=== PATIENT | male | born 1945 | race Caucasian/White ===

== ENCOUNTER 2018-01-16 10:55 | Observation (INO) ==
--- NOTE | 2018-01-16 11:18 | ED ---
HPI General Chief Complaint: Chest Pain Stated Complaint: Chest Pain Time Seen by Provider: 01/16/18 10:57 Source: patient Mode of arrival: EMS Limitations: no limitations History of Present Illness HPI narrative: The patient is a 72-year-old male who presents to the emergency department via EMS for chest pain. The patient states he developed chest pain at 9:30 AM while he was sitting in his recliner, drinking coffee, and watching a game show. The chest pain was left-sided, described as heaviness , radiates to left upper extremity and left jaw and neck. The pain is constant , described as a heaviness. The patient's pain initially was 9.5, he took 2 sublingual nitroglycerin at home which brought his pain down to 9.0. The patient's pain continued, therefore, he called EMS who provided the patient with aspirin and nitroglycerin sublingual. The patient does complain of mild shortness of breath, nausea, and diaphoresis. The patient has a history of hypertension, hyperlipidemia, but quit smoking 9 years ago. He denies any history of diabetes. The patient states he had a stress test several years ago for hospital which was unremarkable, however, had a CAT scan of his chest which was positive for an 80% blockage per his report. The patient states he underwent cardiac catheterization at that time via the right wrist and was noted to not have any blockages per his report. However, the patient had chest pain last week and went to [facility], requested a stress test, but was discharged home. The patient did have [employer] and was followed by Dr. Zendejas, however, he now has [facility] and does not have a coordinator cardiopulmonary services. Symptoms are moderate and progressive. The patient denies any history of pulmonary embolism or DVT. MD complaint: Reports chest pain STEMI Alert: No Onset (ago): hour(s) Time: 09:30 Duration: constant Onset: during rest Pain location: Reports left chest Severity: severe Severity scale (1-10): 9 Quality: Reports heaviness Pain radiation: Reports LUE and neck Relieving factors: nitroglycerin Exacerbating factors: nothing Associated symptoms: Reports nausea, diaphoresis and dyspnea Treatments prior to arrival chest pain: Reports aspirin and nitroglycerin Related Data Home Medications Medication Instructions Recorded Confirmed albuterol sulfate [Ventolin HFA] 1 - 2 puff INHALATION Q6H PRN 01/16/18 01/16/18 aspirin 81 mg PO DAILY 01/16/18 01/16/18 atorvastatin 40 mg PO HS 01/16/18 01/16/18 levocetirizine [Xyzal] 5 mg PO DAILY 01/16/18 01/16/18 levothyroxine 137 mcg PO DAILY 01/16/18 01/16/18 lisinopril 5 mg PO DAILY 01/16/18 01/16/18 mv,Ca,eyg-avpl-JN-lycopene 1 tab PO DAILY 01/16/18 01/16/18 [Centrum Men] nitroglycerin [Nitrostat] 0.4 mg SUBLINGUAL Q5-15M PRN 01/16/18 01/16/18 zolpidem [Ambien] 10 mg PO HS 01/16/18 01/16/18 Allergies Allergy/AdvReac Type Severity Reaction Status Date / Time cyclobenzaprine Allergy Severe Hives Verified 01/16/18 11:24 ketorolac Allergy Severe EDEMA, Verified 01/16/18 11:24 HIVES morphine Allergy Severe ITCHING Verified 01/16/18 11:24 naproxen Allergy Severe EDEMA, Verified 01/16/18 11:24 HIVES Review of Systems ROS: all other systems reviewed are negative [facility] Social History Social History Substance History: No History of Abuse and Past History Second Hand Smoke Exposure: No Smoking Status: Former smoker (quit 2008) Packs Per Day: 1.5 (1.5-2 packs/daily) Cigarettes Per Day: 30.0 Years Smoked: 44 Pack-Years: 66.00 years: 66 (66-88 pack year history ) How Often Do You Have a Drink Containing Alcohol: Never [facility] within the Last 8 Weeks: No Recent Out of Country Travel within the Last 8 Weeks: No Exam Narrative Exam Narrative: GENERAL: Awake, alert, nontoxic-appearing 72-year-old male who appears his stated age and is in no acute respiratory distress. SKIN: Focused skin assessment warm/dry. HEAD: Atraumatic. Normocephalic. EYES: Pupils equal and round. No scleral icterus. No injection or drainage. ENT: No nasal bleeding or discharge. Mucous membranes pink and moist. NECK: Trachea midline. No JVD. CARDIOVASCULAR: Regular rate and rhythm. No murmur appreciated. Heart rate in the 90s. RESPIRATORY: No accessory muscle use. Clear to auscultation. Breath sounds equal bilaterally. GASTROINTESTINAL: Abdomen soft, non-tender, nondistended. MUSCULOSKELETAL: No obvious deformities. No clubbing. No cyanosis. Trace edema bilateral lower extremities. NEUROLOGICAL: Awake and alert. No obvious cranial nerve deficits. Motor grossly within normal limits. Normal speech. PSYCHIATRIC: Appropriate mood and affect; insight and judgment normal. Course Initial Documented Vital Signs Temperature 98 F 01/16/18 11:00 Pulse Rate 93 H 01/16/18 11:00 Respiratory Rate 25 H 01/16/18 11:00 Blood Pressure 146/90 H 01/16/18 11:00 Pulse Oximetry 95 01/16/18 11:00 Last Documented Vital Signs Temperature 98.4 F 01/17/18 11:32 Pulse Rate 79 01/17/18 11:32 Respiratory Rate 18 01/17/18 11:32 Blood Pressure 156/84 H 01/17/18 11:32 Pulse Oximetry 94 L 01/17/18 11:32 Clinical Decision Support PERC Rule Age greater than or equal to 50: Yes HR greather than or equal to 100: No Sa02 on room air is less than 95%: No Unilateral Leg Swelling: No Hemoptysis: No Recent Surgery or Trauma: No Prior PE or DVT: No Hormone Use: No Medical Decision Making MDM Narrative Medical decision making narrative: IV was established, labs are drawn and sent, and the patient was placed on cardiac telemetry monitoring and continuous pulse oximetry monitoring. EKG was ordered and interpreted. Chest x-ray was obtained. The patient received aspirin and nitroglycerin sublingual prior to arrival with minimal improvement of his pain from 9.5-9.0. Therefore, the patient was placed on Nitropaste. I did review the EMR, and it appears the patient had a Lexiscan performed in 2016 which was unremarkable. Patient does have risk factors and a typical story minus exertional factors for possible ACS. Patient's heart rate was in the 90s, therefore, d-dimer was sent to lab as he could not be ruled out with PERC criteria secondary to age. CTA pulmonary angiogram was negative, patient will be placed in the chest pain center. Medical Screen Exam Complete: No Emergency Medical Condition: No Differential Diagnosis Differential Diagnosis: Differential diagnosis includes ACS, STEMI, pulmonary embolism, dissection, GERD, esophageal spasm, anxiety, cardio myopathy, deconditioning. Lab Data Result diagrams: 01/16/18 11:10 01/16/18 11:10 Lab Results 01/16/18 01/16/18 01/16/18 Range/Units 11:10 11:10 11:10 WBC 10.3 (4.0-11.0) th/mm3 RBC 4.34 L (4.50-5.90) mil/mm3 Hgb 13.8 (13.0-17.0) gm/dL Hct 40.7 (39.0-51.0) % MCV 93.9 (80.0-100.0) fL MCH 31.8 (27.0-34.0) pg MCHC 33.9 (32.0-36.0) % RDW 13.6 (11.6-17.2) % Plt Count 238 (150-450) th/mm3 MPV 7.8 (7.0-11.0) fL Neut % (Auto) 83.3 H (16.0-70.0) % Lymph % (Auto) 9.8 (9.0-44.0) % [place] % (Auto) 5.3 (0.0-8.0) % Eos % (Auto) 1.2 (0.0-4.0) % Baso % (Auto) 0.4 (0.0-2.0) % Neut # (Auto) 8.6 H (1.8-7.7) th/mm3 Lymph # (Auto) 1.0 (1.0-4.8) th/mm3 [place] # (Auto) 0.6 (0.0-0.9) th/mm3 Eos # (Auto) 0.1 (0.0-0.4) th/mm3 Baso # (Auto) 0.0 (0.0-0.2) th/mm3 WBC Differential . Differential Comment Auto diff final PT 10.9 (9.8-11.6) sec INR 1.1 Ratio APTT 25.3 (23.4-31.7) sec D-Dimer Quant (PE/DVT) 0.53 H (0.00-0.50) mg/L FEU Sodium 141 (136-145) meq/L Potassium 4.0 (3.5-5.1) meq/L Chloride 107 (98-107) meq/L Carbon Dioxide 26.1 (21.0-32.0) meq/L Anion Gap 8 (5-15) meq/L BUN 13 (7-18) mg/dL Creatinine 1.06 (0.60-1.30) mg/dL Estimated GFR 69 L (>89) mL/min Random Glucose 119 H (74-106) mg/dL Calcium 8.5 (8.5-10.1) mg/dL Magnesium 2.0 (1.5-2.5) mg/dL Total Bilirubin 0.5 (0.2-1.0) mg/dL AST 21 (15-37) U/L ALT 35 (12-78) U/L Alkaline Phosphatase 69 (45-117) U/L Total Creatine Kinase 105 (39-308) U/L CK-MB (CK-2) 1.2 (0.5-3.6) ng/mL Troponin I Less than 0.02 L (0.02-0.05) ng/mL B-Natriuretic Peptide (0-100) pg/mL Total Protein 7.1 (6.4-8.2) g/dL Albumin 3.7 (3.4-5.0) g/dL Lipase 424 H (73-393) U/L Urine Color (Yellw/Straw) Urine Clarity (Clear) Urine pH (5.0-8.5) Ur Specific [place] (1.002-1.035) Urine Protein (Neg-Trace) mg/dL Urine Glucose (UA) (Negative) mg/dL Urine Ketones (Negative) mg/dL Urine Occult Blood (Negative) Urine Nitrate (Negative) Urine Bilirubin (Negative) Urine Urobilinogen (Less than 2) mg/dL Ur Leukocyte Esterase (Negative) Urine RBC (0-3) /hpf Urine WBC (0-5) /hpf Ur Squamous Epith Cells (0-5) /hpf Hyaline Casts (0-3) /lpf Micro UA Comment Ur Microscopic Review Urine Culture Comments 01/16/18 01/16/18 01/17/18 Range/Units 11:10 17:25 05:51 WBC (4.0-11.0) th/mm3 RBC (4.50-5.90) mil/mm3 Hgb (13.0-17.0) gm/dL Hct (39.0-51.0) % MCV (80.0-100.0) fL MCH (27.0-34.0) pg MCHC (32.0-36.0) % RDW (11.6-17.2) % Plt Count (150-450) th/mm3 MPV (7.0-11.0) fL Neut % (Auto) (16.0-70.0) % Lymph % (Auto) (9.0-44.0) % [place]land % (Auto) (0.0-8.0) % Eos % (Auto) (0.0-4.0) % Baso % (Auto) (0.0-2.0) % Neut # (Auto) (1.8-7.7) th/mm3 Lymph # (Auto) (1.0-4.8) th/mm3 Highland # (Auto) (0.0-0.9) th/mm3 Eos # (Auto) (0.0-0.4) th/mm3 Baso # (Auto) (0.0-0.2) th/mm3 WBC Differential Differential Comment PT (9.8-11.6) sec INR Ratio APTT (23.4-31.7) sec D-Dimer Quant (PE/DVT) (0.00-0.50) mg/L FEU Sodium (136-145) meq/L Potassium (3.5-5.1) meq/L Chloride (98-107) meq/L Carbon Dioxide (21.0-32.0) meq/L Anion Gap (5-15) meq/L BUN (7-18) mg/dL Creatinine (0.60-1.30) mg/dL Estimated GFR (>89) mL/min Random Glucose (74-106) mg/dL Calcium (8.5-10.1) mg/dL Magnesium (1.5-2.5) mg/dL Total Bilirubin (0.2-1.0) mg/dL AST (15-37) U/L ALT (12-78) U/L Alkaline Phosphatase (45-117) U/L Total Creatine Kinase (39-308) U/L CK-MB (CK-2) (0.5-3.6) ng/mL Troponin I Less than 0.02 L (0.02-0.05) ng/mL B-Natriuretic Peptide 16 (0-100) pg/mL Total Protein (6.4-8.2) g/dL Albumin (3.4-5.0) g/dL Lipase 269 (73-393) U/L Urine Color (Yellw/Straw) Urine Clarity (Clear) Urine pH (5.0-8.5) Ur Specific [place] (1.002-1.035) Urine Protein (Neg-Trace) mg/dL Urine Glucose (UA) (Negative) mg/dL Urine Ketones (Negative) mg/dL Urine Occult Blood (Negative) Urine Nitrate (Negative) Urine Bilirubin (Negative) Urine Urobilinogen (Less than 2) mg/dL Ur Leukocyte Esterase (Negative) Urine RBC (0-3) /hpf Urine WBC (0-5) /hpf Ur Squamous Epith Cells (0-5) /hpf Hyaline Casts (0-3) /lpf Micro UA Comment Ur Microscopic Review Urine Culture Comments 01/17/18 Range/Units 08:30 WBC (4.0-11.0) th/mm3 RBC (4.50-5.90) mil/mm3 Hgb (13.0-17.0) gm/dL Hct (39.0-51.0) % MCV (80.0-100.0) fL MCH (27.0-34.0) pg MCHC (32.0-36.0) % RDW (11.6-17.2) % Plt Count (150-450) th/mm3 MPV (7.0-11.0) fL Neut % (Auto) (16.0-70.0) % Lymph % (Auto) (9.0-44.0) % [place]land % (Auto) (0.0-8.0) % Eos % (Auto) (0.0-4.0) % Baso % (Auto) (0.0-2.0) % Neut # (Auto) (1.8-7.7) th/mm3 Lymph # (Auto) (1.0-4.8) th/mm3 [place] # (Auto) (0.0-0.9) th/mm3 Eos # (Auto) (0.0-0.4) th/mm3 Baso # (Auto) (0.0-0.2) th/mm3 WBC Differential Differential Comment PT (9.8-11.6) sec INR Ratio APTT (23.4-31.7) sec D-Dimer Quant (PE/DVT) (0.00-0.50) mg/L FEU Sodium (136-145) meq/L Potassium (3.5-5.1) meq/L Chloride (98-107) meq/L Carbon Dioxide (21.0-32.0) meq/L Anion Gap (5-15) meq/L BUN (7-18) mg/dL Creatinine (0.60-1.30) mg/dL Estimated GFR (>89) mL/min Random Glucose (74-106) mg/dL Calcium (8.5-10.1) mg/dL Magnesium (1.5-2.5) mg/dL Total Bilirubin (0.2-1.0) mg/dL AST (15-37) U/L ALT (12-78) U/L Alkaline Phosphatase (45-117) U/L Total Creatine Kinase (39-308) U/L CK-MB (CK-2) (0.5-3.6) ng/mL Troponin I (0.02-0.05) ng/mL B-Natriuretic Peptide (0-100) pg/mL Total Protein (6.4-8.2) g/dL Albumin (3.4-5.0) g/dL Lipase (73-393) U/L Urine Color Yellow (Yellw/Straw) Urine Clarity Clear (Clear) Urine pH 5.0 (5.0-8.5) Ur Specific [place] 1.015 (1.002-1.035) Urine Protein Negative (Neg-Trace) mg/dL Urine Glucose (UA) Negative (Negative) mg/dL Urine Ketones Negative (Negative) mg/dL Urine Occult Blood Negative (Negative) Urine Nitrate Negative (Negative) Urine Bilirubin Negative (Negative) Urine Urobilinogen Less than 2 (Less than 2) mg/dL Ur Leukocyte Esterase Negative (Negative) Urine RBC Less than 1 (0-3) /hpf Urine WBC Less than 1 (0-5) /hpf Ur Squamous Epith Cells <1 (0-5) /hpf Hyaline Casts 1 (0-3) /lpf Micro UA Comment Culture not ind Ur Microscopic Review Not Reportable Urine Culture Comments Culture not ind Imaging Data Radiologist's impression: Chest X-Ray 01/16/18 11:09 CONCLUSION: No acute cardiopulmonary findings. Chest CTA 01/16/18 12:07 CONCLUSION: 1. No pulmonary embolus identified. 2. Atherosclerotic plaquing in the coronary arteries. 3. 4.6 cm simple cyst in the dome of the liver. 4. Stable appearance of the examination when compared to previous dated 2010. ECG Data EKG Prior to Arrival: No Attestation: I personally reviewed and interpreted this ECG as follows: Interpretation: EKG reveals normal sinus rhythm with a rate 85. Inverted T wave in lead III. Discharge Plan Discharge Disposition Patient Disposition: 30 Still Patient Discharge Condition Condition: Stable Discharge Details Diagnosis: Chest pain Physicians Team ED Provider: Jorge Palomares Primary Care Provider: UNKNOWN, Attending Provider: Julián Bryan Other Providers: [facility],Insurance Status ED Status: Left Department Discharge Information Discharge Date/Time: 01/16/18 17:03
[2018-01-16 11:36] LABS: Baso % (Auto) 0.4 % (0.0-2.0); Eos # (Auto) 0.1 th/mm3 (0.0-0.4); Eos % (Auto) 1.2 % (0.0-4.0); Hematocrit 40.7 % (39.0-51.0); Hemoglobin 13.8 gm/dL (13.0-17.0); Lymph % (Auto) 9.8 % (9.0-44.0); Mean Corpuscular HGB Conc 33.9 % (32.0-36.0); Mean Corpuscular Hemoglobin 31.8 pg (27.0-34.0); Mean Corpuscular Volume 93.9 fL (80.0-100.0); Mean Platelet Volume 7.8 fL (7.0-11.0); Mono # (Auto) 0.6 th/mm3 (0.0-0.9); Mono % (Auto) 5.3 % (0.0-8.0); Neut # (Auto) 8.6 th/mm3 (1.8-7.7); Neut % (Auto) 83.3 % (16.0-70.0); Platelet Count 238 th/mm3 (150-450); Red Blood Count 4.34 mil/mm3 (4.50-5.90); Red Cell Distribution Width 13.6 % (11.6-17.2); White Blood Count 10.3 th/mm3 (4.0-11.0)
--- NOTE | 2018-01-16 11:43 | XR ---
EXAM DATE: 01/16/2018 11:38 AM EST AGE/SEX: 72 years / Male INDICATIONS: High blood pressure, short of breath, chest pressure. CLINICAL DATA: This is the patient's initial encounter. Patient reports that signs and symptoms have been present for 2 days and indicates a pain score of 4/10. MEDICAL/SURGICAL HISTORY: Chronic obstructive pulmonary disease. Hypertension. None. [place] [facility] [place]. . FINDINGS: The heart is at the upper limits of normal in size. The lungs are clear. There is an old, healed frac ture of the left seventh posterior rib. The osseous structures are otherwise intact. CONCLUSION: No acute cardiopulmonary findings. Electronically signed by: Shlomo Orourke MD 01/16/2018 11:42 AM EST
[2018-01-16 11:44] LABS: Alanine Aminotransferase 35 U/L (12-78); Albumin 3.7 g/dL (3.4-5.0); Anion Gap 8 meq/L (5-15); Aspartate Aminotransferase 21 U/L (15-37); Blood Urea Nitrogen 13 mg/dL (7-18); Calcium 8.5 mg/dL (8.5-10.1); Carbon Dioxide 26.1 meq/L (21.0-32.0); Chloride 107 meq/L (98-107); Glomerular Filtration Rate 69 mL/min (>89); Glucose,Random 119 mg/dL (74-106); Lipase 424 U/L (73-393); Sodium 141 meq/L (136-145)
[2018-01-16 11:48] LABS: Alkaline Phosphatase 69 U/L (45-117); Creatine Kinase 105 U/L (39-308); Total Protein 7.1 g/dL (6.4-8.2)
[2018-01-16 11:52] LABS: Activated Partial Thrombo Time 25.3 sec (23.4-31.7); INR 1.1 Ratio; Prothrombin Time 10.9 sec (9.8-11.6)
[2018-01-16 11:53] LABS: D-Dimer 0.53 mg/L FEU (0.00-0.50)
[2018-01-16 12:00] LABS: Creatine Kinase MB 1.2 ng/mL (0.5-3.6)
--- NOTE | 2018-01-16 12:53 | ECG ---
Date Performed: 01/16/2018 Time Performed: 11:01:13 PTAGE: 72 years EKG: Sinus rhythm BORDERLINE LEFT AXIS DEVIATION BORDERLINE ECG INTERPRETATION BASED ON A DEFAULT AGE OF 41 YEARS PREVIOUS TRACING : 05/04/2015 21.43 DOCTOR: Derek Saldana Interpretating Date/Time 01/16/2018 12:52:17
--- NOTE | 2018-01-16 13:10 | CT ---
EXAM DATE: 01/16/2018 1:00 PM EST AGE/SEX: 72 years / Male INDICATIONS: Left side chest pain. Shortness of breath. Elevated D-Dimer. CLINICAL DATA: This is the patient's initial encounter. Patient reports that signs and symptoms have been present for 1 day and indicates a pain score of 9/10. MEDICAL/SURGICAL HISTORY: Chronic obstructive pulmonary disease. Cholelithiasis. Hypertension. H ernia. None. RADIATION DOSE: 23.36 CTDI (mGy) COMPARISON: C, CTA CHEST W 3D RECON, 05/06/2010. . TECHNIQUE: Volumetric scanning was performed using a multi-row detector CT scanner during bolus infu radha of 72 ml Omnipaque 350 (iohexol) nonionic water-soluble contrast as a single exam dose. The krzysztof a was post processed with a variety of visualization algorithms including full volume maximum intensi ty projection and sliding thin slab reformation. Using automated exposure control and adjustment of the mA and/or kV according to patient size, radiation dose was kept as low as reasonably achievable t o obtain optimal diagnostic quality images. DICOM format image data is available electronically for review and comparison. FINDINGS: The examination is of good diagnostic quality. There is no pulmonary embolus identified. The heart is normal in size. There is atherosclerotic plaquing in the coronary arteries. No hilar or mediastinal adenopathy is seen. No axillary adenopathy is identified. Imaging through the pulmonary parenchyma demonstrates the lungs to be clear. There are degenerative changes within the thoracic spine. Note is made of a 4.6 cm cyst within the right lobe of the liver. CONCLUSION: 1. No pulmonary embolus identified. 2. Atherosclerotic plaquing in the coronary arteries. 3. 4.6 cm simple cyst in the dome of the liver. 4. Stable appearance of the examination when compared to previous dated 05/06/2010. Electronically signed by: Shlomo Orourke MD 01/16/2018 1:08 PM EST
--- NOTE | 2018-01-16 15:54 | P.HPCA ---
History of Present Illness Primary Care Physician: UNKNOWN Chief Complaint: Chest pain History of Present Illness: 72 year old male with history of hyperlipidemia, hypertension, COPD, and hypothyroidism presents emergency room for further evaluation of nonexertional chest pain. Onset 930. Location left anterior chest. Characterized as tightness. Severe in intensity, rated 9.5 out of 10 pain scale. Took x1 nitro SL, pain decreased to 9/10. Discomfort continued, therefore took additional nitro SL 10 minutes later. Discomfort unchanged after nitro so he called EMS. No associated symptoms of shortness of breath, nausea, vomiting, or diaphoresis. No radiation of pain, but reports left arm initially felt "numb" with associated left scapula discomfort. Chest pain constant, left arm numbness and left scapula discomfort resolved within 10 minutes of initial discomfort. No precipitating or relieving factors. Endorses similar pain in the past, most recently 5 days ago while attending nondenominational. Gnosticist going called EMS and he was evaluated at [facility]. States requesting a stress testing, but was discharge for a reported normal Lexiscan 1.5 years ago. Past cardiac testing Lexiscan 1.5 years ago reported to be normal, completed at [facility]. 05/05/2015 Lexiscan-small area of mild reversibility within the inferior wall. EF 59%. Seen and evaluated by chest pain center physician and discharged home with follow with primary care provider. 05/29/2013 Lexiscan-1. Normal LV perfusion without significant fixed or reversible perfusion defect. 2. Normal LV wall motion with estimated ejection fraction of 67%. 05/05/2004 Cardiac catheterization (Dr. Witt) Conclusion-1. Annual graphically no significant coronary artery disease and right dominant system. 2. Elevated left ventricular end-diastolic pressure was low and normal LV systolic function. Estimated ejection fraction 50%. No focal segment wall motion abnormalities. 3. Recommend smoking cessation and continue medical management of coronary artery disease. 12/21/2001 Cardiac catheterization (Darren) Conclusion-1. Mild to moderate left circumflex hazy with mild disease of the right coronary artery. 2. Preserved left ventricular function. Normal left ventricular end-diastolic pressure. Social history Known hypertension and hyperlipidemia. No known diabetes. Documentation reviewed suggest mild coronary artery disease. Former 1.5-2 pack day smoker, quit 9 years ago. 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 No recreational drug use. Lives with girlfriend. Uses a cane for reported vertigo. - Diagnosis (1) Atypical chest pain (2) Hypertension (3) Hyperlipemia (4) Hypothyroid (5) Elevated lipase (6) COPD (chronic obstructive pulmonary disease) (7) Insomnia Review of Systems All other systems reviewed negative except as stated in HPI PMFSH - History History Provided By: Patient - Medical History Medical History: Medical History (Last Reviewed 01/16/18 @ 16:23 by MANJINDER Valadez) Bronchitis COPD (chronic obstructive pulmonary disease) Chest pain FHx: cholecystectomy Gallstone HTN (hypertension) Hemorrhoids Hernia High cholesterol - Surgical History Surgical History: Surgical History (Last Reviewed 01/16/18 @ 16:23 by MANJINDER Valadez) H/O hemorrhoidectomy H/O hernia repair H/O thyroidectomy Hx of tonsillectomy - Social History I have reviewed the patient's Social History: Yes - Tobacco History Second Hand Smoke Exposure: No Tobacco Use In Past 30 Days: No Smoking Status: Former smoker (quit 2008) Packs Per Day: 1.5 (1.5-2 packs/daily) Years Smoked: 44 years: 66 (66-88 pack year history ) - Alcohol History How Often Do You Have a Drink Containing Alcohol: Never - Substance Use History Substance History: No History of Abuse, Past History - Substance Use Type Alcohol Status: Sustained Remission (quit drinking 29 years ago) - Travel History Recent Travel in the [place] Within the Last 8 Weeks: No Recent Travel Out of the Country Within the Last 8 Weeks: No - Immunization History Tetanus Immunization: <5 Years Medications and Allergies Active Medications: Active Medications Sodium Chloride (Ns Flush) 2 ml IV.FLUSH UNSCH PRN PRN Reason: FLUSH AFTER USING IV ACCESS Last Admin: 01/16/18 11:25 Dose: 2 ml Sodium Chloride (Ns Flush) 2 ml IV.FLUSH BID KALI Allergies Allergy/AdvReac Type Severity Reaction Status Date / Time cyclobenzaprine Allergy Severe Hives Verified 01/16/18 11:24 ketorolac Allergy Severe EDEMA, Verified 01/16/18 11:24 HIVES morphine Allergy Severe ITCHING Verified 01/16/18 11:24 naproxen Allergy Severe EDEMA, Verified 01/16/18 11:24 HIVES Home Medications Medication Instructions Recorded Confirmed Type albuterol sulfate [Ventolin HFA] 1 - 2 puff INHALATION Q6H PRN 01/16/18 History aspirin 81 mg PO DAILY 01/16/18 01/16/18 History atorvastatin 40 mg PO HS 01/16/18 01/16/18 History levocetirizine [Xyzal] 5 mg PO DAILY 01/16/18 01/16/18 History levothyroxine 137 mcg PO DAILY 01/16/18 01/16/18 History lisinopril 5 mg PO DAILY 01/16/18 01/16/18 History mv,Ca,xad-gqvx-RN-lycopene 1 tab PO DAILY 01/16/18 01/16/18 History [Centrum Men] nitroglycerin [Nitrostat] 0.4 mg SUBLINGUAL Q5-15M PRN 01/16/18 01/16/18 History zolpidem [Ambien] 10 mg PO HS 01/16/18 01/16/18 History Exam Vital signs: Vital Signs 01/16/18 11:00 01/16/18 11:09 01/16/18 11:15 Temperature 98 F Pulse Rate 93 H 78 Respiratory Rate 25 H 24 Blood Pressure 146/90 H 136/81 Pulse Oximetry 95 95 98 01/16/18 11:45 Temperature Pulse Rate Respiratory Rate Blood Pressure Pulse Oximetry 97 Intake & Output 01/15/18 01/16/18 01/16/18 18:59 06:59 18:59 Weight 122.47 kg - Constitutional no acute distress, obese, cooperative Comments: male - Routine HEENT Exam Head: Present: normocephalic, atraumatic - Routine Neck Exam Present: supple, full ROM, JVD - Routine Respiratory Exam Present: CTA bilaterally. Absent: wheezes, crackles - Routine Cardiovascular Exam Present: RRR. Absent: murmur, gallop, rubs - Routine Abdominal Exam Present: soft, normoactive bowel sounds. Absent: tenderness, distended - Routine Extremities Exam Present: full ROM, pulses intact. Absent: edema - Routine Skin Exam Present: intact - Routine Neurological Exam Present: alert, oriented X3, normal tone, normal speech. Absent: sensory deficit, motor deficit - Routine Psychiatric Exam Present: normal affect, normal thought process, cooperative, good insight, good judgment. Absent: anxious Results 01/16/18 11:10 01/16/18 11:10 Cardiac Enzymes 01/16/18 01/16/18 Range/Units 11:10 11:10 AST 21 (15-37) U/L CK-MB (CK-2) 1.2 (0.5-3.6) ng/mL Troponin I Less than 0.02 L (0.02-0.05) ng/mL B-Natriuretic Peptide 16 (0-100) pg/mL Coagulation 01/16/18 01/16/18 Range/Units 11:10 11:10 PT 10.9 (9.8-11.6) sec APTT 25.3 (23.4-31.7) sec B-Natriuretic Peptide 16 (0-100) pg/mL CBC 01/16/18 Range/Units 11:10 WBC 10.3 (4.0-11.0) th/mm3 RBC 4.34 L (4.50-5.90) mil/mm3 Hgb 13.8 (13.0-17.0) gm/dL Hct 40.7 (39.0-51.0) % Plt Count 238 (150-450) th/mm3 Neut # (Auto) 8.6 H (1.8-7.7) th/mm3 Lymph # (Auto) 1.0 (1.0-4.8) th/mm3 [place] # (Auto) 0.6 (0.0-0.9) th/mm3 Eos # (Auto) 0.1 (0.0-0.4) th/mm3 Baso # (Auto) 0.0 (0.0-0.2) th/mm3 Comprehensive Metabolic Panel 01/16/18 Range/Units 11:10 Sodium 141 (136-145) meq/L Potassium 4.0 (3.5-5.1) meq/L Chloride 107 (98-107) meq/L Carbon Dioxide 26.1 (21.0-32.0) meq/L BUN 13 (7-18) mg/dL Creatinine 1.06 (0.60-1.30) mg/dL Calcium 8.5 (8.5-10.1) mg/dL AST 21 (15-37) U/L ALT 35 (12-78) U/L Alkaline Phosphatase 69 (45-117) U/L Total Protein 7.1 (6.4-8.2) g/dL Albumin 3.7 (3.4-5.0) g/dL Intake and Output 01/16/18 01/16/18 01/16/18 06:59 14:59 22:59 Other: Weight 122.47 kg Patient Weight 01/17/18 06:59 Weight 122.47 kg - Imaging and Cardiology Imaging: Impressions Chest X-Ray 01/16/18 11:09 CONCLUSION: No acute cardiopulmonary findings. Chest CTA 01/16/18 12:07 CONCLUSION: 1. No pulmonary embolus identified. 2. Atherosclerotic plaquing in the coronary arteries. 3. 4.6 cm simple cyst in the dome of the liver. 4. Stable appearance of the examination when compared to previous dated 2010. EKG interpretations - EKG EKG results cardiology: sinus rhythm (nonspecific t wave change inferiorly), normal axis, normal QRS Caprini VTE Risk Assessment Caprini VTE Risk Assessment: Moderate/High Risk (score >= 2) Caprini Risk Assessment Model: Point Value = 1 Point Value = 2 Point Value = 3 Point Value = 5 Age 41-60 Minor surgery BMI > 25 kg/m2 Swollen legs Varicose veins or History of unexplained or recurrent spontaneous Oral contraceptives or hormone replacement Sepsis (< 1 month) Serious lung disease, including pneumonia (< 1 month) Abnormal pulmonary function Acute myocardial infarction Congestive heart failure (< 1 month) History of inflammatory bowel disease Medical patient at bed rest Age 61-74 Arthroscopic surgery Major open surgery (> 45 min) Laparoscopic surgery (> 45 min) Malignancy Confined to bed (> 72 hours) Immobilizing plaster cast Central venous access Age >= 75 History of VTE Family history of VTE Factor V Leiden Prothrombin [id number] Lupus anticoagulant Anticardiolipin antibodies Elevated serum homocysteine Heparin-induced thrombocytopenia Other congenital or acquired thrombophilia Stroke (< 1 month) Elective arthroplasty Hip, pelvis, or leg fracture Acute spinal cord injury (< 1 month) Prophylaxis Regimen: Total Risk Factor Score Risk Level Prophylaxis Regimen 0-1 Low Early ambulation 2 Moderate Order ONE of the following: *Sequential Compression Device (SCD) *Heparin 5000 units SQ BID 3-4 Higher Order ONE of the following medications: *Heparin 5000 units SQ TID *Enoxaparin/Lovenox 40 mg SQ daily (WT < 150 kg, CrCl > 30 mL/min) *Enoxaparin/Lovenox 30 mg SQ daily (WT < 150 kg, CrCl > 10-29 mL/min) *Enoxaparin/Lovenox 30 mg SQ BID (WT < 150 kg, CrCl > 30 mL/min) AND/OR *Sequential Compression Device (SCD) 5 or more Highest Order ONE of the following medications: *Heparin 5000 units SQ TID (Preferred with Epidurals) *Enoxaparin/Lovenox 40 mg SQ daily (WT < 150 kg, CrCl > 30 mL/min) *Enoxaparin/Lovenox 30 mg SQ daily (WT < 150 kg, CrCl > 10-29 mL/min) *Enoxaparin/Lovenox 30 mg SQ BID (WT < 150 kg, CrCl > 30 mL/min) AND *Sequential Compression Device (SCD) Assessment and Plan - Assessment (1) Atypical chest pain Code(s): R07.89 - Other chest pain Status: Acute Plan: Admit to chest pain center. Continue ruling out ACS with 3 sets of EKGs and cardiac enzymes. Team evaluated by Dr. Julián Bryan. Considered atypical as discomfort persisted since 930 a.m. and without acute laboratory or EKG findings. CTA ruled out pulmonary embolism. Will provide pain relief. Plan to proceed with Lexiscan in morning, as patient drank coffee this morning. Patient is agreeable to plan of care. 1745 Upon further discussion with patient, he reports having a cardiac catheterization 1.5 years ago after having an abnormal coronary angiogram CT. Reports catheterization normal and without blockage. Will attempt to obtain medical records. Discussed with RN. (2) Hypertension Code(s): I10 - Essential (primary) hypertension Status: Chronic Plan: Continue to monitor. Discussed importance of tight blood pressure control. Continue lisinopril. (3) Hyperlipemia Code(s): E78.5 - Hyperlipidemia, unspecified Status: Chronic Plan: Continue atorvastatin. (4) Hypothyroid Code(s): E03.9 - Hypothyroidism, unspecified Status: Chronic Plan: Continue levothyroxine. (5) Elevated lipase Code(s): R74.8 - Abnormal levels of other serum enzymes Status: Chronic Plan: Repeat lipase in a.m.. Abdominal assessment unremarkable. (6) COPD (chronic obstructive pulmonary disease) Code(s): J44.9 - Chronic obstructive pulmonary disease, unspecified Status: Chronic Plan: Continue albuterol. (7) Insomnia Code(s): G47.00 - Insomnia, unspecified Status: Chronic Plan: Continue Ambien. (2) Hypertension Qualifiers: Hypertension type: unspecified Qualified Code(s): I10 - Essential (primary) hypertension (3) Hyperlipemia Qualifiers: Hyperlipidemia type: unspecified Qualified Code(s): E78.5 - Hyperlipidemia, unspecified (4) Hypothyroid Qualifiers: Hypothyroidism type: unspecified Qualified Code(s): E03.9 - Hypothyroidism, unspecified (6) COPD (chronic obstructive pulmonary disease) Qualifiers: Emphysema type: unspecified (7) Insomnia Qualifiers: Insomnia type: unspecified Qualified Code(s): G47.00 - Insomnia, unspecified
[2018-01-16] MEDS ORDERED: Acetaminophen 325 MG Tablet PO PRN (17:32)
[2018-01-17] MEDS ORDERED: Levothyroxine 112 MCG Tablet PO SCH (06:00)
--- NOTE | 2018-01-17 07:56 | P.PNCA ---
Subjective Interval history: Chest pain improved "somewhat" with ordered Lortab. Chest pain never fully resolved. Reports dysuria beginning last evening. Denies frequent UTIs, last UTI 10 years ago. Medications and Allergies Active Medications: Active Medications Acetaminophen (Tylenol) 650 mg PO Q4H PRN PRN Reason: PAIN SCALE 1 TO 5 Hydrocodone Bitart/Acetaminophen ([place] 7.5/325) 1 tab PO Q4H PRN PRN Reason: PAIN SCALE 1 TO 7 Last Admin: 01/17/18 05:17 Dose: 1 tab Albuterol (Albuterol Neb (Prn)) 0.63 mg NEB Q6HR NEB PRN PRN Reason: SHORTNESS OF BREATH/WHEEZING Atorvastatin Calcium (Lipitor) 40 mg PO [facility] Last Admin: 01/16/18 19:59 Dose: 40 mg Levothyroxine Sodium (Synthroid) 112 mcg PO DAILY@0600 [facility] Last Admin: 01/17/18 05:17 Dose: 112 mcg Levothyroxine Sodium (Synthroid) 25 mcg PO DAILY@0600 [facility] Last Admin: 01/17/18 05:17 Dose: 25 mcg Lisinopril (Prinivil) 5 mg PO DAILY [facility] Ondansetron HCl (Zofran Inj) 4 mg IV.PUSH Q6H PRN PRN Reason: NAUSEA Last Admin: 01/17/18 03:07 Dose: 4 mg Pt:Xyzal 5 Mg 0 each PO DAILY [facility] Sodium Chloride (Ns Flush) 2 ml IV.FLUSH UNSCH PRN PRN Reason: FLUSH AFTER USING IV ACCESS Last Admin: 01/16/18 11:25 Dose: 2 ml Sodium Chloride (Ns Flush) 2 ml IV.FLUSH BID [facility] Last Admin: 01/16/18 19:59 Dose: 2 ml Zolpidem Tartrate (Ambien) 10 mg PO HS [facility] Last Admin: 01/16/18 19:59 Dose: 10 mg Allergies Allergy/AdvReac Type Severity Reaction Status Date / Time cyclobenzaprine Allergy Severe Hives Verified 01/16/18 11:24 ketorolac Allergy Severe EDEMA, Verified 01/16/18 11:24 HIVES morphine Allergy Severe ITCHING Verified 01/16/18 11:24 naproxen Allergy Severe EDEMA, Verified 01/16/18 11:24 HIVES Home Medications Medication Instructions Recorded Confirmed Type albuterol sulfate [Ventolin HFA] 1 - 2 puff INHALATION Q6H PRN 01/16/18 History aspirin 81 mg PO DAILY 01/16/18 01/16/18 History atorvastatin 40 mg PO HS 01/16/18 01/16/18 History levocetirizine [Xyzal] 5 mg PO DAILY 01/16/18 01/16/18 History levothyroxine 137 mcg PO DAILY 01/16/18 01/16/18 History lisinopril 5 mg PO DAILY 01/16/18 01/16/18 History mv,Ca,nrd-vmuz-[place]-lycopene 1 tab PO DAILY 01/16/18 01/16/18 History [Centrum Men] nitroglycerin [Nitrostat] 0.4 mg SUBLINGUAL Q5-15M PRN 01/16/18 01/16/18 History zolpidem [Ambien] 10 mg PO HS 01/16/18 01/16/18 History Physical Exam Vital signs: Vital Signs 01/16/18 11:00 01/16/18 11:09 01/16/18 11:15 Temperature 98 F Pulse Rate 93 H 78 Respiratory Rate 25 H 24 Blood Pressure 146/90 H 136/81 Pulse Oximetry 95 95 98 01/16/18 11:45 01/16/18 15:30 01/16/18 20:00 Temperature 98.6 F Pulse Rate 67 65 Respiratory Rate 20 20 Blood Pressure 130/76 100/62 Pulse Oximetry 97 98 95 01/16/18 23:43 01/17/18 04:00 01/17/18 07:25 Temperature 98.2 F 98.4 F 97.9 F Pulse Rate 69 61 67 Respiratory Rate 17 16 20 Blood Pressure 102/67 107/67 158/91 H Pulse Oximetry 94 L 92 L 95 Intake & Output 01/16/18 01/17/18 01/17/18 18:59 06:59 18:59 Weight 122.47 kg - Constitutional no acute distress - Routine Respiratory Exam Present: CTA bilaterally - Routine Cardiovascular Exam Present: RRR. Absent: murmur, gallop, rubs Results 01/16/18 11:10 01/16/18 11:10 Cardiac Enzymes 01/16/18 01/16/18 01/16/18 Range/Units 11:10 11:10 17:25 AST 21 (15-37) U/L CK-MB (CK-2) 1.2 (0.5-3.6) ng/mL Troponin I Less than 0.02 L Less than 0.02 L (0.02-0.05) ng/mL B-Natriuretic Peptide 16 (0-100) pg/mL Coagulation 01/16/18 01/16/18 Range/Units 11:10 11:10 PT 10.9 (9.8-11.6) sec APTT 25.3 (23.4-31.7) sec B-Natriuretic Peptide 16 (0-100) pg/mL CBC 01/16/18 Range/Units 11:10 WBC 10.3 (4.0-11.0) th/mm3 RBC 4.34 L (4.50-5.90) mil/mm3 Hgb 13.8 (13.0-17.0) gm/dL Hct 40.7 (39.0-51.0) % Plt Count 238 (150-450) th/mm3 Neut # (Auto) 8.6 H (1.8-7.7) th/mm3 Lymph # (Auto) 1.0 (1.0-4.8) th/mm3 [place] # (Auto) 0.6 (0.0-0.9) th/mm3 Eos # (Auto) 0.1 (0.0-0.4) th/mm3 Baso # (Auto) 0.0 (0.0-0.2) th/mm3 Comprehensive Metabolic Panel 01/16/18 Range/Units 11:10 Sodium 141 (136-145) meq/L Potassium 4.0 (3.5-5.1) meq/L Chloride 107 (98-107) meq/L Carbon Dioxide 26.1 (21.0-32.0) meq/L BUN 13 (7-18) mg/dL Creatinine 1.06 (0.60-1.30) mg/dL Calcium 8.5 (8.5-10.1) mg/dL AST 21 (15-37) U/L ALT 35 (12-78) U/L Alkaline Phosphatase 69 (45-117) U/L Total Protein 7.1 (6.4-8.2) g/dL Albumin 3.7 (3.4-5.0) g/dL - Imaging and Cardiology Imaging: Impressions Chest X-Ray 01/16/18 11:09 CONCLUSION: No acute cardiopulmonary findings. Chest CTA 01/16/18 12:07 CONCLUSION: 1. No pulmonary embolus identified. 2. Atherosclerotic plaquing in the coronary arteries. 3. 4.6 cm simple cyst in the dome of the liver. 4. Stable appearance of the examination when compared to previous dated 2010. Assessment and Plan - Assessment (1) Atypical chest pain Code(s): R07.89 - Other chest pain Status: Acute Plan: ACS ruled out. Monitored on telemetry overnight. Awaiting medical records from [facility]. Discussed with patient if records not received soon, likely will proceed with Lexiscan. Agreeable to plan of care. (2) Hypertension Code(s): I10 - Essential (primary) hypertension Status: Chronic Plan: Continue to monitor. Discussed importance of tight blood pressure control. Continue lisinopril. (3) Hyperlipemia Code(s): E78.5 - Hyperlipidemia, unspecified Status: Chronic Plan: Continue atorvastatin. (4) Hypothyroid Code(s): E03.9 - Hypothyroidism, unspecified Status: Chronic Plan: Continue levothyroxine. (5) Elevated lipase Code(s): R74.8 - Abnormal levels of other serum enzymes Status: Chronic Plan: Lipase levels decreased, within normal limits. (6) COPD (chronic obstructive pulmonary disease) Code(s): J44.9 - Chronic obstructive pulmonary disease, unspecified Status: Chronic Plan: Continue albuterol. (7) Insomnia Code(s): G47.00 - Insomnia, unspecified Status: Chronic Plan: Continue Ambien. (8) Dysuria Code(s): R30.0 - Dysuria Status: Acute Plan: Obtain UA. Discussed with RN. (2) Hypertension Qualifiers: Hypertension type: unspecified Qualified Code(s): I10 - Essential (primary) hypertension (3) Hyperlipemia Qualifiers: Hyperlipidemia type: unspecified Qualified Code(s): E78.5 - Hyperlipidemia, unspecified (4) Hypothyroid Qualifiers: Hypothyroidism type: unspecified Qualified Code(s): E03.9 - Hypothyroidism, unspecified (6) COPD (chronic obstructive pulmonary disease) Qualifiers: Emphysema type: unspecified (7) Insomnia Qualifiers: Insomnia type: unspecified Qualified Code(s): G47.00 - Insomnia, unspecified
[2018-01-17] MEDS ORDERED: Lisinopril 5 MG Tablet PO SCH ×2 (09:00)
[2018-01-17] MEDS ORDERED: LEVOCETIRIZINE 5 MG PO SCH (09:00)
[2018-01-17] MEDS ORDERED: [UNRECOGNIZED DRUG - OTHER] PO SCH (09:00)
[2018-01-17 10:26] LABS: Bilirubin,Urine Negative (Negative); Clarity,Urine Clear (Clear); Color,Urine Yellow (Yellw/Straw); Glucose,Urine (UA) Negative (Negative); Hyaline Casts,Urine 1 /lpf (0-3); Leukocyte Esterase,Urine Negative (Negative); Nitrite,Urine Negative (Negative); Specific Gravity,Urine 1.015 (1.002-1.035); Squamous Epithelial Cell,Urine <1 /hpf (0-5)
[2018-01-17 11:36] VITALS: BP 156/84; PULSE 79; RESP 18; TEMP 98.4; O2SAT 94
[2018-01-17] MEDS ORDERED: Regadenoson Inj 0.4 MG/5 ML Syringe IV.PUSH ONE (13:59)
--- NOTE | 2018-01-17 14:24 | ECG ---
Date Performed: 01/16/2018 Time Performed: 20:45:27 PTAGE: 72 years EKG: SINUS BRADYCARDIA WITH FIRST DEGREE AV BLOCK ABNORMAL ECG PREVIOUS TRACING : 01/16/2018 17.40 Since previous tracing, no significant change noted DOCTOR: Julián Bryan Interpretating Date/Time 01/17/2018 14:24:10
--- NOTE | 2018-01-17 14:25 | ECG ---
Date Performed: 01/16/2018 Time Performed: 17:40:09 PTAGE: 72 years EKG: SINUS BRADYCARDIA BORDERLINE ECG PREVIOUS TRACING : 01/16/2018 11.01 Since previous tracing, no significant change noted DOCTOR: Julián Bryan Interpretating Date/Time 01/17/2018 14:24:35
--- NOTE | 2018-01-17 15:22 | NM ---
EXAM DATE: 01/17/2018 3:18 PM EST AGE/SEX: 72 years / Male INDICATIONS:Angina. . Chest pain. CLINICAL DATA: This is the patient's initial encounter. Patient reports that signs and symptoms have been present for 3 days and indicates a pain score of 3/10. MEDICAL/SURGICAL HISTORY: Chronic obstructive pulmonary disease. Hypertension. Inguinal hernia repair. Thyroidectomy. Cholecystectomy. COMPARISON: [facility], MYOCARDIAL PERF PHARM SPECT, 05/05/2015. . DOSE: 11.0 mCi Tc 99m Myoview at rest 35.0 mCi [id number] at stress 0.4 mg Lexiscan STRESS SYMPTOMS: Nausea. EJECTION FRACTION: 51 % TECHNIQUE: The patient underwent pharmacologic stress with infusion of prescribed dose. Continuous ECG tracing was monitored during stress. Gated SPECT imaging was performed after stress and conventi onal SPECT imaging was performed at rest. The examination was performed on a SPECT/CT scanner, both attenuation and non-corrected datasets were reviewed. FINDINGS: Distribution: The maximum perfused segment at stress is in the anteroseptal wall. Perfusion Study: The pattern of perfusion at stress is within normal limits. Gated Study: There are intact wall motion and wall thickening without hypokinetic or dyskinetic segm ents. The ejection fraction is calculated at 51%. RISK CATEGORY: Low (<1% Annual Motality Rate) CONCLUSION: 1. No reversible perfusion defect to indicate stress-induced myocardial ischemia is identified. Electronically signed by: Shlomo Orourke MD 01/17/2018 3:21 PM EST
--- NOTE | 2018-01-19 10:47 | TR ---
Date Performed: 01/17/2018 Time Performed: 14:02:27 DOCTOR: Carlos Johnson DRUG LIST: CLINICAL HISTORY: CHEST PAIN REASON FOR TEST: REASON FOR ENDING: OBSERVATION: CONCLUSION: Lexiscan stress test was performed under standard four minute protocol. Radionuclide was injected one minute prior to ending the test. No electrocardiographic abormalities were present to suggest ischemia. Nuclear imaging and interpretation are pending. COMMENTS:
== END 2018-01-17 16:32 | disposition home or self-care (01) ==
LOC: NEDA 10:55 → NEPE 10:55 → NEDA 15:45 → NEPFCDU 17:06
PROVIDERS: ADMIT Internal Medicine Cardiovascular Disease; ATTEND Internal Medicine Cardiovascular Disease
DX: F10.21 Alcohol dependence, in remission; Z88.6 Allergy status to analgesic agent; K76.89 Other specified diseases of liver; R42 Dizziness and giddiness; E78.5 Hyperlipidemia, unspecified; I10 Essential (primary) hypertension; R07.89 Other chest pain; E03.9 Hypothyroidism, unspecified; E78.00 Pure hypercholesterolemia, unspecified; R30.0 Dysuria; R94.31 Abnormal electrocardiogram [ECG] [EKG]; G47.00 Insomnia, unspecified; I25.10 Atherosclerotic heart disease of native coronary artery without angina pectoris; Z88.5 Allergy status to narcotic agent; R74.8 Abnormal levels of other serum enzymes; F17.210 Nicotine dependence, cigarettes, uncomplicated; Z79.82 Long term (current) use of aspirin; Z79.890 Hormone replacement therapy; J44.9 Chronic obstructive pulmonary disease, unspecified

== ENCOUNTER 2018-02-11 13:23 | Observation (INO) ==
--- NOTE | 2018-02-11 13:43 | ED ---
HPI General Chief Complaint: Chest Pain Stated Complaint: Chest Pain Time Seen by Provider: 02/11/18 13:25 Source: patient Mode of arrival: EMS Limitations: no limitations History of Present Illness HPI narrative: The patient is a 72-year-old male who presents to the emergency department via EMS for chest pain. The patient states he developed chest pain yesterday while shopping with his girlfriend. The chest pain is left -sided, described as aching, radiates to the left upper extremity with tingling , and is associated with mild nausea and shortness of breath. The patient denies any vomiting or diaphoresis. The patient does have a history of hypertension and hyperlipidemia, denies any history of known coronary artery disease. The patient states he was seen at [facility] last year where he had a CT of the chest performed which revealed coronary artery disease and subsequently underwent cardiac catheterization, however, he was told that his cardiac catheterization was normal. The patient was admitted at the end of December for chest pain with similar symptoms, underwent nuclear medicine myocardial perfusion scan by Dr. Bryan which revealed low risk with no reversible ischemic changes. The patient was administered nitroglycerin prior to arrival. The patient denies any known history of pulmonary embolism or DVT. The patient denies any new cough, fever, chills, or sweats. He does complain of mild dysuria for 1 weeks duration without any frequency or urgency. MD complaint: Reports chest pain STEMI Alert: No Onset (ago): day(s) Duration: intermittent Onset: other Pain location: Reports left chest Severity: moderate Severity scale (1-10): 6 Quality: Reports aching Pain radiation: Reports LUE Relieving factors: nothing Exacerbating factors: nothing Associated symptoms: Reports nausea and dyspnea Treatments prior to arrival chest pain: Reports nitroglycerin Related Data Home Medications Medication Instructions Recorded Confirmed albuterol sulfate [Ventolin HFA] 1 - 2 puff INHALATION Q6H PRN 01/16/18 02/11/18 aspirin 81 mg PO DAILY 01/16/18 02/11/18 atorvastatin 40 mg PO HS 01/16/18 02/11/18 levocetirizine [Xyzal] 5 mg PO DAILY 01/16/18 02/11/18 levothyroxine 150 mcg PO DAILY 01/16/18 02/11/18 lisinopril 5 mg PO DAILY 01/16/18 02/11/18 mv,Ca,bth-yyng-OA-lycopene 1 tab PO DAILY 01/16/18 02/11/18 [Centrum Men] nitroglycerin [Nitrostat] 0.4 mg SUBLINGUAL Q5-15M PRN 01/16/18 02/11/18 zolpidem [Ambien] 10 mg PO HS 01/16/18 02/11/18 Allergies Allergy/AdvReac Type Severity Reaction Status Date / Time cyclobenzaprine Allergy Severe Hives Verified 02/11/18 13:32 ketorolac Allergy Severe EDEMA, Verified 02/11/18 13:32 HIVES morphine Allergy Severe ITCHING Verified 02/11/18 13:32 naproxen Allergy Severe EDEMA, Verified 02/11/18 13:32 HIVES Review of Systems ROS: all other systems reviewed are negative [facility] Medical History Medical History Bronchitis (Acute) COPD (chronic obstructive pulmonary disease) (Acute) Chest pain (Acute) FHx: cholecystectomy (Acute) Gallstone (Acute) HTN (hypertension) (Acute) Hemorrhoids (Acute) Hernia (Acute) High cholesterol (Acute) Surgical History Surgical History H/O hemorrhoidectomy (Acute) H/O hernia repair (Acute) H/O thyroidectomy (Acute) Hx of tonsillectomy (Acute) Social History Social History Substance History: No History of Abuse and Past History Second Hand Smoke Exposure: No Smoking Status: Former smoker Packs Per Day: 1.5 (1.5-2 packs/daily) Cigarettes Per Day: 30.0 Years Smoked: 44 Pack-Years: 66.00 years: 66 (66-88 pack year history ) How Often Do You Have a Drink Containing Alcohol: Never Recent Travel in [facility] within the Last 8 Weeks: No Recent Out of Country Travel within the Last 8 Weeks: No Immunization History Tetanus Immunization: Unsure Course Initial Documented Vital Signs Temperature 98.8 F 02/11/18 13:34 Pulse Rate 97 H 02/11/18 13:34 Respiratory Rate 20 02/11/18 13:34 Blood Pressure 134/68 02/11/18 13:34 Pulse Oximetry 98 02/11/18 13:34 Last Documented Vital Signs Temperature 98.8 F 02/11/18 13:34 Pulse Rate 92 H 02/11/18 13:38 Respiratory Rate 18 02/11/18 13:38 Blood Pressure 122/68 02/11/18 13:38 Pulse Oximetry 93 L 02/11/18 13:38 Medical Decision Making MDM Narrative Medical decision making narrative: IV was established, labs are drawn and sent, and the patient was placed on cardiac telemetry monitoring and continuous pulse oximetry monitoring. EKG was ordered and interpreted. Chest x-ray was obtained. The patient received aspirin, hydrocodone, and Zofran. I reviewed the EMR, the patient had a CT pulmonary angiogram on January 16, 2018 which was negative for PE. The patient underwent myocardial perfusion scan performed on January 17, 2018 which revealed low risk, less than 1%, with no reversible ischemic changes. The patient appears to have continuing chest pain with negative workup, therefore, patient will have an initial troponin ordered and will be monitored on telemetry monitoring. The patient's initial troponin was negative. The patient's white count was elevated at 20, UA is positive for UTI. The patient states he had a fever at home of 102, patient meets sirs criteria with UTI. Therefore, patient will be admitted for IV antibiotics until cultures have resulted. The patient was covered with Rocephin 1 g intravenous the patient may need serial cardiac enzymes but most likely will not need cardiology to reevaluate as he just had a negative stress test in December. I discussed the patient with Dr. Manuel who agrees with admission. Medical Screen Exam Complete: Yes Emergency Medical Condition: Yes Differential Diagnosis Differential Diagnosis: Differential diagnosis includes ACS, STEMI, angina, pulmonary embolism, pleural effusion, pneumonia, cardiomyopathy, deconditioning , pancreatitis, GERD, esophageal spasm. Lab Data Result diagrams: 02/11/18 13:40 02/11/18 13:40 Lab Results 02/11/18 02/11/18 02/11/18 Range/Units 13:40 13:40 13:40 WBC 20.8 H (4.0-11.0) th/mm3 RBC 4.01 L (4.50-5.90) mil/mm3 Hgb 12.6 L (13.0-17.0) gm/dL Hct 37.1 L (39.0-51.0) % MCV 92.4 (80.0-100.0) fL MCH 31.4 (27.0-34.0) pg MCHC 34.1 (32.0-36.0) % RDW 14.2 (11.6-17.2) % Plt Count 206 (150-450) th/mm3 MPV 8.2 (7.0-11.0) fL Neut % (Auto) 91.4 H (16.0-70.0) % Lymph % (Auto) 2.8 L (9.0-44.0) % [place] % (Auto) 5.3 (0.0-8.0) % Eos % (Auto) 0.2 (0.0-4.0) % Baso % (Auto) 0.3 (0.0-2.0) % Neut # (Auto) 19.0 H (1.8-7.7) th/mm3 Lymph # (Auto) 0.6 L (1.0-4.8) th/mm3 [place] # (Auto) 1.1 H (0.0-0.9) th/mm3 Eos # (Auto) 0.1 (0.0-0.4) th/mm3 Baso # (Auto) 0.1 (0.0-0.2) th/mm3 WBC Differential . Differential Comment Auto diff final Sodium 140 (136-145) meq/L Potassium 4.1 (3.5-5.1) meq/L Chloride 108 H (98-107) meq/L Carbon Dioxide 25.1 (21.0-32.0) meq/L Anion Gap 7 (5-15) meq/L BUN 15 (7-18) mg/dL Creatinine 1.03 (0.60-1.30) mg/dL Estimated GFR 71 L (>89) mL/min Random Glucose 107 H (74-106) mg/dL Lactic Acid (0.4-2.0) mmol/L Calcium 8.4 L (8.5-10.1) mg/dL Total Bilirubin 1.2 H (0.2-1.0) mg/dL AST 26 (15-37) U/L ALT 30 (12-78) U/L Alkaline Phosphatase 81 (45-117) U/L Total Creatine Kinase 116 (39-308) U/L CK-MB (CK-2) Less than 1.0 (0.5-3.6) ng/mL Troponin I Less than 0.02 L (0.02-0.05) ng/mL Total Protein 6.8 (6.4-8.2) g/dL Albumin 3.5 (3.4-5.0) g/dL Lipase Cancelled 145 Urine Color (Yellw/Straw) Urine Clarity (Clear) Urine pH (5.0-8.5) Ur Specific [place] (1.002-1.035) Urine Protein (Neg-Trace) mg/dL Urine Glucose (UA) (Negative) mg/dL Urine Ketones (Negative) mg/dL Urine Occult Blood (Negative) Urine Nitrate (Negative) Urine Bilirubin (Negative) Urine Urobilinogen (Less than 2) mg/dL Ur Leukocyte Esterase (Negative) Urine RBC (0-3) /hpf Urine WBC (0-5) /hpf Ur Squamous Epith Cells (0-5) /hpf Urine Bacteria (None) /hpf Urine Mucus (Occasional) /lpf Micro UA Comment Ur Microscopic Review Urine Culture Comments 02/11/18 02/11/18 Range/Units 13:45 15:05 WBC (4.0-11.0) th/mm3 RBC (4.50-5.90) mil/mm3 Hgb (13.0-17.0) gm/dL Hct (39.0-51.0) % MCV (80.0-100.0) fL MCH (27.0-34.0) pg MCHC (32.0-36.0) % RDW (11.6-17.2) % Plt Count (150-450) th/mm3 MPV (7.0-11.0) fL Neut % (Auto) (16.0-70.0) % Lymph % (Auto) (9.0-44.0) % [place] % (Auto) (0.0-8.0) % Eos % (Auto) (0.0-4.0) % Baso % (Auto) (0.0-2.0) % Neut # (Auto) (1.8-7.7) th/mm3 Lymph # (Auto) (1.0-4.8) th/mm3 [place] # (Auto) (0.0-0.9) th/mm3 Eos # (Auto) (0.0-0.4) th/mm3 Baso # (Auto) (0.0-0.2) th/mm3 WBC Differential Differential Comment Sodium (136-145) meq/L Potassium (3.5-5.1) meq/L Chloride (98-107) meq/L Carbon Dioxide (21.0-32.0) meq/L Anion Gap (5-15) meq/L BUN (7-18) mg/dL Creatinine (0.60-1.30) mg/dL Estimated GFR (>89) mL/min Random Glucose (74-106) mg/dL Lactic Acid 0.9 (0.4-2.0) mmol/L Calcium (8.5-10.1) mg/dL Total Bilirubin (0.2-1.0) mg/dL AST (15-37) U/L ALT (12-78) U/L Alkaline Phosphatase (45-117) U/L Total Creatine Kinase (39-308) U/L CK-MB (CK-2) (0.5-3.6) ng/mL Troponin I (0.02-0.05) ng/mL Total Protein (6.4-8.2) g/dL Albumin (3.4-5.0) g/dL Lipase Urine Color Yellow (Yellw/Straw) Urine Clarity Hazy H (Clear) Urine pH 6.0 (5.0-8.5) Ur Specific [place] 1.020 (1.002-1.035) Urine Protein Negative (Neg-Trace) mg/dL Urine Glucose (UA) Negative (Negative) mg/dL Urine Ketones Trace H (Negative) mg/dL Urine Occult Blood Negative (Negative) Urine Nitrate Negative (Negative) Urine Bilirubin Negative (Negative) Urine Urobilinogen 2.0 H (Less than 2) mg/dL Ur Leukocyte Esterase Moderate H (Negative) Urine RBC 5 H (0-3) /hpf Urine WBC 112 H (0-5) /hpf Ur Squamous Epith Cells 1 (0-5) /hpf Urine Bacteria Rare H (None) /hpf Urine Mucus Few H (Occasional) /lpf Micro UA Comment Culture indicated Ur Microscopic Review Not Reportable Urine Culture Comments Culture indicated Imaging Data Radiologist's impression: Chest X-Ray 02/11/18 13:38 CONCLUSION: The lungs are clear. ECG Data EKG Prior to Arrival: No Attestation: I personally reviewed and interpreted this ECG as follows: Interpretation: EKG reveals normal sinus rhythm with a rate of 96. Inverted T waves noted in lead III. No significant ST elevations or depressions noted. Discharge Plan Discharge Disposition Patient Disposition: ED Admit(ED Internal Use Only) Discharge Condition Condition: Stable Discharge Order Discharge Orders: ED Use Only Admit Order (Routine); Ordered 02/11/18 Ordered By: Jorge Palomares Discharge Details Diagnosis: Urinary tract infection, Chest pain, SIRS (systemic inflammatory response syndrome) Physicians Team ED Provider: Jorge Palomares Primary Care Provider: UNKNOWN, Rxs /Orders / Referrals /Forms Prescriptions: No Action zolpidem [Ambien] 10 mg Tablet 10 mg PO HS RF: 0 atorvastatin 40 mg Tablet 40 mg PO HS RF: 0 levothyroxine 137 mcg Tablet 150 mcg PO DAILY RF: 0 aspirin 81 mg Tablet,Delayed Release (Dr/Ec) 81 mg PO DAILY RF: 0 nitroglycerin [Nitrostat] 0.4 mg Tablet, Sublingual 0.4 mg SUBLINGUAL Q5-15M PRN (Reason: Chest Pain) RF: 0 lisinopril 5 mg Tablet 5 mg PO DAILY RF: 0 albuterol sulfate [Ventolin HFA] 90 mcg/actuation Hfa Aerosol Inhaler 1 - 2 puff INHALATION Q6H PRN (Reason: Shortness Of Breath) RF: 0 levocetirizine [Xyzal] 5 mg Tablet 5 mg PO DAILY RF: 0 mv,Ca,ezv-oomv-EK-lycopene [Centrum Men] 8 mg iron- 200 mcg-600 mcg Tablet 1 tab PO DAILY RF: 0 Discharge Instructions Patient Printed Instructions: Chest Pain (ED) Status ED Status: Admitted Patient
--- NOTE | 2018-02-11 13:52 | XR ---
EXAM DATE: 02/11/2018 1:49 PM EST AGE/SEX: 72 years / Male INDICATIONS: Patient states shortness of breath. CLINICAL DATA: This is the patient's initial encounter. Patient reports that signs and symptoms have been present for 3 days and indicates a pain score of 0/10. MEDICAL/SURGICAL HISTORY: Hypercholesterolemia. None. COMPARISON: [facility] [place] [facility] [place] 1V SINGLE AP, 01/16/2018. . FINDINGS: A single AP view of the chest demonstrates the lungs to be symmetrically aerated without evidence of mass, infiltrate or effusion. The cardiomediastinal contours are unremarkable. Osseous structures a re intact. CONCLUSION: The lungs are clear. Electronically signed by: Abad Camacho MD Board Certified Radiologist 02/11/2018 1:50 PM EST
[2018-02-11 14:18] LABS: Baso # (Auto) 0.1 th/mm3 (0.0-0.2); Baso % (Auto) 0.3 % (0.0-2.0); Eos # (Auto) 0.1 th/mm3 (0.0-0.4); Eos % (Auto) 0.2 % (0.0-4.0); Hematocrit 37.1 % (39.0-51.0); Hemoglobin 12.6 gm/dL (13.0-17.0); Lymph # (Auto) 0.6 th/mm3 (1.0-4.8); Lymph % (Auto) 2.8 % (9.0-44.0); Mean Corpuscular HGB Conc 34.1 % (32.0-36.0); Mean Corpuscular Hemoglobin 31.4 pg (27.0-34.0); Mean Corpuscular Volume 92.4 fL (80.0-100.0); Mean Platelet Volume 8.2 fL (7.0-11.0); Mono # (Auto) 1.1 th/mm3 (0.0-0.9); Mono % (Auto) 5.3 % (0.0-8.0); Neut % (Auto) 91.4 % (16.0-70.0); Platelet Count 206 th/mm3 (150-450); Red Blood Count 4.01 mil/mm3 (4.50-5.90); Red Cell Distribution Width 14.2 % (11.6-17.2); White Blood Count 20.8 th/mm3 (4.0-11.0)
[2018-02-11 14:28] LABS: Bacteria,Urine Rare /hpf; Bilirubin,Urine Negative (Negative); Clarity,Urine Hazy (Clear); Color,Urine Yellow (Yellw/Straw); Glucose,Urine (UA) Negative (Negative); Leukocyte Esterase,Urine Moderate (Negative); Mucus,Urine Few /lpf (Occasional); Nitrite,Urine Negative (Negative); Squamous Epithelial Cell,Urine 1 /hpf (0-5)
[2018-02-11 14:34] LABS: Alkaline Phosphatase 81 U/L (45-117); Creatine Kinase 116 U/L (39-308); Total Protein 6.8 g/dL (6.4-8.2)
[2018-02-11 14:38] LABS: Alanine Aminotransferase 30 U/L (12-78); Albumin 3.5 g/dL (3.4-5.0); Anion Gap 7 meq/L (5-15); Aspartate Aminotransferase 26 U/L (15-37); Blood Urea Nitrogen 15 mg/dL (7-18); Calcium 8.4 mg/dL (8.5-10.1); Carbon Dioxide 25.1 meq/L (21.0-32.0); Chloride 108 meq/L (98-107); Glomerular Filtration Rate 71 mL/min (>89); Glucose,Random 107 mg/dL (74-106); Lipase 145 U/L (73-393); Potassium 4.1 meq/L (3.5-5.1); Sodium 140 meq/L (136-145)
[2018-02-11] MEDS ORDERED: Sodium Chlor 0.9% Inj 500 ML IV.SIG SCH (15:00)
[2018-02-11] MEDS ORDERED: Bisacodyl 10 MG Supp RECTAL PRN (16:47)
[2018-02-11] MEDS ORDERED: Acetaminophen 325 MG Tablet PO PRN (16:47)
[2018-02-11] MEDS ORDERED: Nitroglycerin SL (Override) 0.4 MG Tab SL PRN (16:52)
--- NOTE | 2018-02-11 17:00 | P.HP ---
History of Present Illness Service: [facility] Primary Care Physician: UNKNOWN Chief Complaint: "Chest pain" History of Present Illness: 72-year-old male with past medical history significant for hypertension, hyperlipidemia, chest pain, COPD, hypothyroidism and gallstones who presents to the emergency department via [facility] due to chest pain. Review of medical records from [place] reveals patient was most recently seen in December due to complaints of chest pain and admitted to chest pain center. During that admission patient underwent CTA which was negative for PE, noted arthrosclerotic plaquing of the coronary arteries, 4.6 cm simple cyst in dome of liver. During December admission troponins were negative and patient underwent myocardial perfusion scan which revealed no reversible perfusion defect to indicate stress-induced myocardial ischemia. Patient was ultimately discharged home with instructions to follow-up with PCP nitroglycerin as needed. Today he presents with chest pain complaints which began yesterday while he was grocery shopping reports that pain was located on the left side of his chest radiating to the left arm causing numbness. He reports pain lasted about 3-4 hours and ultimately subsided on its own without intervention. He denies any dizziness, lightheadedness, or palpitations during this episode. This morning around 10 AM he again began experiencing chest pain on left side radiating down to the left arm while he was sitting watching TV. He rates his pain 9.5 out of 10 describes it as a stabbing sensation with no alleviating factors. He reports he took 2 nitroglycerin sublingual without relief and called [facility]. In route he believes he received additional nitroglycerin with no relief. When arrived to the emergency department he received oral Kent and states this relieved his pain. He denies any recent trauma to left chest area. Patient reports that he has been having ongoing chest pain for the past year. He was seen at [facility] about a year ago and states that he had a scan done which showed 86% blockage in 1 of his arteries. Subsequently he underwent heart catheterization which she was told was negative. He also shares with me that he was seen at [facility] about a month ago due to urinary complaints and was discharged with a prescription for Dilaudid. He complains of fever of 102 today with chills, dysuria, questionable hematuria , nausea without vomiting and no lower back pain. He denies any urinary incontinence or frequency. He denies any headache, dizziness, cough, shortness of breath, visual changes, or weakness on any extremity. - Diagnosis (1) Urinary tract infection (2) Atypical chest pain (3) Dysuria (4) SIRS (systemic inflammatory response syndrome) Review of Systems All other systems reviewed negative except as stated in HPI [facility] - History History Provided By: Patient, Medical Record - Medical History Medical History: Medical History (Last Updated 02/11/18 @ 16:55 by Destiny Busby) Hypothyroidism Bronchitis COPD (chronic obstructive pulmonary disease) Chest pain FHx: cholecystectomy Gallstone HTN (hypertension) Hemorrhoids Hernia High cholesterol - Surgical History Surgical History: Surgical History (Last Reviewed 02/11/18 @ 16:55 by Destiny Busby) H/O hemorrhoidectomy H/O hernia repair H/O thyroidectomy Hx of tonsillectomy - Social History I have reviewed the patient's Social History: Yes - Tobacco History Second Hand Smoke Exposure: No Tobacco Use In Past 30 Days: No Smoking Status: Former smoker Packs Per Day: 1.5 (1.5-2 packs/daily) Years Smoked: 44 years: 66 (66-88 pack year history ) - Alcohol History How Often Do You Have a Drink Containing Alcohol: Never - Substance Use History Substance History: No History of Abuse, Past History - Travel History Recent Travel in the [place] Within the Last 8 Weeks: No Recent Travel Out of the Country Within the Last 8 Weeks: No - Immunization History Tetanus Immunization: Unsure Medications and Allergies Active Medications: Active Medications Acetaminophen (Tylenol) 650 mg PO Q4H PRN PRN Reason: Temp > 100.4 Al Hydroxide/Mg Hydroxide (Milk Of Magnesia Liq) 30 ml PO Q12H PRN PRN Reason: Mild Constipation Aspirin (Ecotrin) 81 mg PO DAILY KALI Atorvastatin Calcium (Lipitor) 40 mg PO HS KALI Bisacodyl (Dulcolax Supp) 10 mg RECTAL DAILY PRN PRN Reason: SEVERE CONSITIPATION Heparin Sodium (Porcine) (Heparin Inj) 5,000 units SQ Q12H KALI Ceftriaxone Sodium 1,000 mg/ (Sodium Chloride) 100 mls @ 200 mls/hr IV.SIG Q24H KALI Lactulose (Lactulose Liq) 30 ml PO DAILY PRN PRN Reason: SEVERE CONSITIPATION Lisinopril (Prinivil) 5 mg PO DAILY KALI Nitroglycerin (Nitrostat Sl (Override)) 0.4 mg SL Q5-15M PRN PRN Reason: Chest Pain Non-Formulary Medication (Levocetirizine [Xyzal]) 5 mg PO DAILY KALI Non-Formulary Medication (Levothyroxine [Levothyroxine]) 150 mcg PO DAILY [facility] Ondansetron HCl (Zofran Inj) 4 mg IV.PUSH Q6H PRN PRN Reason: NAUSEA OR VOMITING Senna/Docusate Sodium (Flower-Colace) 1 tab PO BID [facility] Sennosides (Senokot) 17.2 mg PO Q12H PRN PRN Reason: Moderate Constipation Sodium Chloride (Ns Flush) 2 ml IV.FLUSH UNSCH PRN PRN Reason: FLUSH AFTER USING IV ACCESS Sodium Chloride (Ns Flush) 2 ml IV.FLUSH BID KALI Sodium Chloride (Ns Flush) 2 ml IV.FLUSH PRN PRN PRN Reason: FLUSH AFTER USING IV ACCESS Allergies Allergy/AdvReac Type Severity Reaction Status Date / Time cyclobenzaprine Allergy Severe Hives Verified 02/11/18 13:32 ketorolac Allergy Severe EDEMA, Verified 02/11/18 13:32 HIVES morphine Allergy Severe ITCHING Verified 02/11/18 13:32 naproxen Allergy Severe EDEMA, Verified 02/11/18 13:32 HIVES Home Medications Medication Instructions Recorded Confirmed Type albuterol sulfate [Ventolin HFA] 1 - 2 puff INHALATION Q6H PRN 01/16/18 History aspirin 81 mg PO DAILY 01/16/18 02/11/18 History atorvastatin 40 mg PO HS 01/16/18 02/11/18 History levocetirizine [Xyzal] 5 mg PO DAILY 01/16/18 02/11/18 History levothyroxine 150 mcg PO DAILY 01/16/18 02/11/18 History lisinopril 5 mg PO DAILY 01/16/18 02/11/18 History mv,Ca,obm-zwbr-ZA-lycopene 1 tab PO DAILY 01/16/18 02/11/18 History [Centrum Men] nitroglycerin [Nitrostat] 0.4 mg SUBLINGUAL Q5-15M PRN 01/16/18 02/11/18 History zolpidem [Ambien] 10 mg PO HS 01/16/18 02/11/18 History Exam Vital signs: Vital Signs 02/11/18 13:34 02/11/18 13:38 Temperature 98.8 F Pulse Rate 97 H 92 H Respiratory Rate 20 18 Blood Pressure 134/68 122/68 Pulse Oximetry 98 92 L Intake & Output 02/10/18 02/11/18 02/11/18 18:59 06:59 18:59 Weight 119.748 kg Narrative: GENERAL: Well-developed, obese male resting in bed appears to be in no acute distress. SKIN: Warm and dry. HEAD: Atraumatic. Normocephalic. EYES: Pupils equal and round. No scleral icterus. No injection or drainage. ENT: No nasal bleeding or discharge. Mucous membranes pink and moist. NECK: Trachea midline. No JVD. CARDIOVASCULAR: Regular rate and rhythm. RESPIRATORY: No accessory muscle use. Clear to auscultation. Breath sounds equal bilaterally. GASTROINTESTINAL: Abdomen soft, non-tender, obese. + Bowel sounds MUSCULOSKELETAL: Extremities without clubbing, cyanosis, or edema. No obvious deformities. Tenderness to palpation over left upper chest area/pectoralis. NEUROLOGICAL: Awake, alert, oriented x3. No obvious cranial nerve deficits. Motor grossly within normal limits. Five out of 5 muscle strength in the arms and legs. Normal speech. PSYCHIATRIC: Appropriate mood and affect; insight and judgment normal. Results - Labs CBC & Chem 7: 02/11/18 13:40 02/11/18 13:40 Labs: Laboratory Results - last 24 hr 02/11/18 02/11/18 02/11/18 13:40 13:40 13:40 WBC 20.8 H RBC 4.01 L Hgb 12.6 L Hct 37.1 L MCV 92.4 MCH 31.4 MCHC 34.1 RDW 14.2 Plt Count 206 MPV 8.2 Neut % (Auto) 91.4 H Lymph % (Auto) 2.8 L Early % (Auto) 5.3 Eos % (Auto) 0.2 Baso % (Auto) 0.3 Neut # (Auto) 19.0 H Lymph # (Auto) 0.6 L Early # (Auto) 1.1 H Eos # (Auto) 0.1 Baso # (Auto) 0.1 WBC Differential . Differential Comment Auto diff final Sodium 140 Potassium 4.1 Chloride 108 H Carbon Dioxide 25.1 Anion Gap 7 BUN 15 Creatinine 1.03 Estimated GFR 71 L Random Glucose 107 H Lactic Acid Calcium 8.4 L Total Bilirubin 1.2 H AST 26 ALT 30 Alkaline Phosphatase 81 Total Creatine Kinase 116 CK-MB (CK-2) Less than 1.0 Troponin I Less than 0.02 L Total Protein 6.8 Albumin 3.5 Lipase Cancelled 145 Urine Color Urine Clarity Urine pH Ur Specific Switchback Urine Protein Urine Glucose (UA) Urine Ketones Urine Occult Blood Urine Nitrate Urine Bilirubin Urine Urobilinogen Ur Leukocyte Esterase Urine RBC Urine WBC Ur Squamous Epith Cells Urine Bacteria Urine Mucus Micro UA Comment Ur Microscopic Review Urine Culture Comments 02/11/18 02/11/18 13:45 15:05 WBC RBC Hgb Hct MCV MCH MCHC RDW Plt Count MPV Neut % (Auto) Lymph % (Auto) Early % (Auto) Eos % (Auto) Baso % (Auto) Neut # (Auto) Lymph # (Auto) Early # (Auto) Eos # (Auto) Baso # (Auto) WBC Differential Differential Comment Sodium Potassium Chloride Carbon Dioxide Anion Gap BUN Creatinine Estimated GFR Random Glucose Lactic Acid 0.9 Calcium Total Bilirubin AST ALT Alkaline Phosphatase Total Creatine Kinase CK-MB (CK-2) Troponin I Total Protein Albumin Lipase Urine Color Yellow Urine Clarity Hazy H Urine pH 6.0 Ur Specific Switchback 1.020 Urine Protein Negative Urine Glucose (UA) Negative Urine Ketones Trace H Urine Occult Blood Negative Urine Nitrate Negative Urine Bilirubin Negative Urine Urobilinogen 2.0 H Ur Leukocyte Esterase Moderate H Urine RBC 5 H Urine WBC 112 H Ur Squamous Epith Cells 1 Urine Bacteria Rare H Urine Mucus Few H Micro UA Comment Culture indicated Ur Microscopic Review Not Reportable Urine Culture Comments Culture indicated - Imaging Impressions Chest X-Ray 02/11/18 13:38 CONCLUSION: The lungs are clear. Caprini VTE Risk Assessment Caprini VTE Risk Assessment: Moderate/High Risk (score >= 2) Caprini Risk Assessment Model: Point Value = 1 Point Value = 2 Point Value = 3 Point Value = 5 Age 41-60 Minor surgery BMI > 25 kg/m2 Swollen legs Varicose veins or History of unexplained or recurrent spontaneous Oral contraceptives or hormone replacement Sepsis (< 1 month) Serious lung disease, including pneumonia (< 1 month) Abnormal pulmonary function Acute myocardial infarction Congestive heart failure (< 1 month) History of inflammatory bowel disease Medical patient at bed rest Age 61-74 Arthroscopic surgery Major open surgery (> 45 min) Laparoscopic surgery (> 45 min) Malignancy Confined to bed (> 72 hours) Immobilizing plaster cast Central venous access Age >= 75 History of VTE Family history of VTE Factor V Leiden Prothrombin [id number] Lupus anticoagulant Anticardiolipin antibodies Elevated serum homocysteine Heparin-induced thrombocytopenia Other congenital or acquired thrombophilia Stroke (< 1 month) Elective arthroplasty Hip, pelvis, or leg fracture Acute spinal cord injury (< 1 month) Prophylaxis Regimen: Total Risk Factor Score Risk Level Prophylaxis Regimen 0-1 Low Early ambulation 2 Moderate Order ONE of the following: *Sequential Compression Device (SCD) *Heparin 5000 units SQ BID 3-4 Higher Order ONE of the following medications: *Heparin 5000 units SQ TID *Enoxaparin/Lovenox 40 mg SQ daily (WT < 150 kg, CrCl > 30 mL/min) *Enoxaparin/Lovenox 30 mg SQ daily (WT < 150 kg, CrCl > 10-29 mL/min) *Enoxaparin/Lovenox 30 mg SQ BID (WT < 150 kg, CrCl > 30 mL/min) AND/OR *Sequential Compression Device (SCD) 5 or more Highest Order ONE of the following medications: *Heparin 5000 units SQ TID (Preferred with Epidurals) *Enoxaparin/Lovenox 40 mg SQ daily (WT < 150 kg, CrCl > 30 mL/min) *Enoxaparin/Lovenox 30 mg SQ daily (WT < 150 kg, CrCl > 10-29 mL/min) *Enoxaparin/Lovenox 30 mg SQ BID (WT < 150 kg, CrCl > 30 mL/min) AND *Sequential Compression Device (SCD) Assessment and Plan - Assessment (1) Urinary tract infection Code(s): N39.0 - Urinary tract infection, site not specified Status: Acute (2) Atypical chest pain Code(s): R07.89 - Other chest pain Status: Acute (3) Dysuria Code(s): R30.0 - Dysuria Status: Acute (4) SIRS (systemic inflammatory response syndrome) Code(s): R65.10 - Systemic inflammatory response syndrome (SIRS) of non- infectious origin without acute organ dysfunction Status: Acute - Plan 72-year-old male with past medical history significant for hypertension, hyperlipidemia, chest pain, COPD, hypothyroidism and gallstones who presents to the emergency department via [facility] due to chest pain and urinary complaints. Atypical chest pain, recurrent -Recently underwent nuclear stress test which was negative, heart catheterization a year ago negative -Continue to monitor on telemetry -Initial troponin negative, initial EKG negative, chest x-ray negative -Continue trending troponin and EKGs -Rule out ACS -Likely MS in nature, + tenderness with palpation, Lidoderm patch, PRN Kent -Patient also advised to follow-up with GI as outpatient Urinary tract infection Cystitis, acute Meet SIRS criteria (WBC 20.8, heart rate >90, suspected source) -UA positive for ketones, leukocyte esterase, WBCs and bacteria, culture pending -Blood cultures pending -Continue IV Rocephin, followed urine cultures -Monitor for ongoing hematuria Hypertension, chronic Hyperlipidemia, chronic Hypothyroidism -Continue home medications DVT prophylaxis-subcu heparin Code Status: Full code Discussed Condition With: Patient and Dr. Manuel
[2018-02-11] MEDS: Heparin - SQ 10,000 UNITS/ML Vial SQ SCH (17:24)
[2018-02-11] MEDS: Lidocaine 5% Patch T-DERMAL SCH (19:06)
[2018-02-11] MEDS: Senna/Docusate Sodium 8.6/50 MG Tablet PO SCH (21:38)
[2018-02-12 03:54] LABS: Baso % (Auto) 0.1 % (0.0-2.0); Eos # (Auto) 0.1 th/mm3 (0.0-0.4); Eos % (Auto) 0.7 % (0.0-4.0); Hemoglobin 11.1 gm/dL (13.0-17.0); Lymph # (Auto) 1.2 th/mm3 (1.0-4.8); Lymph % (Auto) 6.9 % (9.0-44.0); Mean Corpuscular HGB Conc 34.7 % (32.0-36.0); Mean Corpuscular Hemoglobin 31.4 pg (27.0-34.0); Mean Corpuscular Volume 90.4 fL (80.0-100.0); Mono # (Auto) 1.2 th/mm3 (0.0-0.9); Mono % (Auto) 6.9 % (0.0-8.0); Neut # (Auto) 14.8 th/mm3 (1.8-7.7); Neut % (Auto) 85.4 % (16.0-70.0); Platelet Count 171 th/mm3 (150-450); Red Blood Count 3.54 mil/mm3 (4.50-5.90); Red Cell Distribution Width 13.9 % (11.6-17.2); White Blood Count 17.3 th/mm3 (4.0-11.0)
[2018-02-12 04:10] LABS: Alanine Aminotransferase 34 U/L (12-78); Albumin 2.8 g/dL (3.4-5.0); Anion Gap 7 meq/L (5-15); Aspartate Aminotransferase 22 U/L (15-37); Blood Urea Nitrogen 16 mg/dL (7-18); Calcium 7.8 mg/dL (8.5-10.1); Carbon Dioxide 25.1 meq/L (21.0-32.0); Chloride 109 meq/L (98-107); Glomerular Filtration Rate 66 mL/min (>89); Glucose,Random 110 mg/dL (74-106); Potassium 3.9 meq/L (3.5-5.1); Sodium 141 meq/L (136-145)
[2018-02-12 04:15] LABS: Alkaline Phosphatase 71 U/L (45-117); Total Protein 5.8 g/dL (6.4-8.2)
[2018-02-12] MEDS: Heparin - SQ 10,000 UNITS/ML Vial SQ SCH ×2 (04:40→17:40)
[2018-02-12] MEDS: Levothyroxine 150 MCG Tablet PO SCH ×2 (07:32→10:01)
[2018-02-12] MEDS ORDERED: LEVOTHYROXINE 150 MCG PO SCH (09:00)
[2018-02-12] MEDS: Lisinopril 5 MG Tablet PO SCH (10:00)
[2018-02-12] MEDS: Lidocaine 5% Patch T-DERMAL SCH (10:00)
[2018-02-12] MEDS: Senna/Docusate Sodium 8.6/50 MG Tablet PO SCH ×2 (10:01→21:23)
[2018-02-12] MEDS: LEVOCETIRIZINE 5 MG PO SCH (10:30)
--- NOTE | 2018-02-12 13:06 | P.PNIM ---
Subjective Interval history: And evaluated this morning at bedside. Patient reports that he has had multiple episodes of chest pain that have been worked up in the past and to this point have been negative. Patient denied recent travel, pleuritic type chest pain, current chest pain or palpitations, episode of shortness of breath, reflux-like symptoms, rash over chest wall, nausea, vomiting, diaphoresis, trauma to the chest wall. Chest x-ray in emergency department was negative. Stress test less than 1 month ago also negative. Chest CTA less than 1 month ago negative. In regards to patient's urinary complaints he reports that he has burning with urination which is new for him as he has no other urinary problems in the past. Current urinary culture is positive for gram-negative rods with species still pending. Patient is currently on ceftriaxone. Physical Exam Vital signs: Last Vital Signs Temp 97.8 F 02/12/18 08:00 Pulse 65 02/12/18 08:00 Resp 16 02/12/18 08:00 BP 125/69 02/12/18 08:00 Pulse Ox 92 L 02/12/18 08:00 Intake & Output 02/10/18 02/11/18 02/12/18 02/13/18 06:59 06:59 06:59 06:59 Intake Total 840 / 840 Output Total 975 / 975 Balance 840 / 840 -975 / -975 Weight 119.3 kg Narrative: GENERAL: Well-developed, obese male resting in bed appears to be in no acute distress. SKIN: Warm and dry. No rash HEAD: Atraumatic. Normocephalic. EYES: Pupils equal and round. No scleral icterus. No injection or drainage. ENT: No nasal bleeding or discharge. Mucous membranes pink and moist. NECK: Trachea midline. No JVD. CARDIOVASCULAR: Regular rate and rhythm. RESPIRATORY: No accessory muscle use. Clear to auscultation. Breath sounds equal bilaterally. GASTROINTESTINAL: Abdomen soft, non-tender, obese. + Bowel sounds MUSCULOSKELETAL: Extremities without clubbing, cyanosis, or edema. No obvious deformities. Tenderness to palpation over left upper chest area/pectoralis. NEUROLOGICAL: Awake, alert, oriented x3. No obvious cranial nerve deficits. Motor grossly within normal limits. Five out of 5 muscle strength in the arms and legs. Normal speech. Results Labs CBC & Chem 7: 02/12/18 03:39 02/12/18 03:39 Labs: Microbiology 02/11/18 13:45 Clean Catch Urine Urine Culture - Preliminary gram negative rods 02/11/18 15:10 Blood - Peripheral Aerobic Blood Culture - Preliminary No growth in 1 day 02/11/18 15:10 Blood - Peripheral Anaerobic Blood Culture - Preliminary No growth in 1 day 02/11/18 15:05 Blood - Peripheral Aerobic Blood Culture - Preliminary No growth in 1 day 02/11/18 15:05 Blood - Peripheral Anaerobic Blood Culture - Preliminary No growth in 1 day Imaging Imaging: Impressions Chest X-Ray 02/11/18 13:38 CONCLUSION: The lungs are clear. Assessment and Plan (1) Urinary tract infection: Code(s): N39.0 - Urinary tract infection, site not specified Status: Acute (2) Atypical chest pain: Code(s): R07.89 - Other chest pain Status: Acute (3) Dysuria: Code(s): R30.0 - Dysuria Status: Acute (4) SIRS (systemic inflammatory response syndrome): Code(s): R65.10 - Systemic inflammatory response syndrome (SIRS) of non-infectious origin without acute organ dysfunction Status: Acute Plan Patient is a 72-year-old male with past medical history of atypical chest pain presenting with complaints of chest pain over the left sternal wall as well as burning with urination concerning for urinary tract infection. Cardiovascular: Chest pain, hypertension, hyperlipidemia Patient has received multiple workups in the past to this point which have been negative. Troponin levels during hospitalization negative. EKG without acute ST changes. On physical examination patient's chest wall pain was reproducible with palpation of her chest wall which is concerning for possible costochondritis. This was explained to patient and will begin trial of NSAID therapy and monitor results. Given documented history of allergy will use high-dose Acetaminophen 650 mg 4 times daily -Use of opioids should be avoided in patients with chest pain of musculoskeletal etiology. For patients with continued symptoms interfering with performance of activities of daily living and who have not experienced an adequate response to other therapies, including treatment with topical agents, physical measures, nonsteroidal antiinflammatory drugs (NSAIDs), and local injection (where appropriate), a trial of tramadol at a dose of up to 200 mg daily in divided doses may be used, although the lowest dose necessary should be employed. EKG as needed chest pain Continue telemetry monitoring Continue lisinopril 5 mg daily, atorvastatin 40 mg p.o. Infectious disease: Urinary tract infection Urine culture pending Ceftriaxone 1 g every 24 Transition to p.o. regimen based on culture results Endocrinology: Hypothyroidism Continue Synthroid 150 mcg Check TSH to rule out evidence of hyperthyroidism which could present with chest pain if patient were to go into atrial fibrillation intermittently CODE STATUS: Full code DVT prophylaxis: Heparin subcu Diet: Disposition: Medical surgery unit. Progress Note: Quality VTE Deep Vein Thrombosis/Pulmonary Embolism Present on Admission: No _ (1) Urinary tract infection Qualifiers: Urinary tract infection type: Hematuria presence: Indwelling urinary catheter type: Encounter type:
[2018-02-12] MEDS: Naproxen 500 MG Tablet PO SCH ×2 (13:27→21:23)
--- NOTE | 2018-02-12 13:43 | ECG ---
Date Performed: 02/11/2018 Time Performed: 13:36:47 PTAGE: 72 years EKG: Sinus rhythm BORDERLINE LEFT AXIS DEVIATION BORDERLINE ECG Compared to PREVIOUS TRACING , the sinus rate has increased. PREVIOUS TRACING 01/16/2018 20.45.27 DOCTOR: Christopher Blanco Interpretating Date/Time 02/12/2018 13:41:59
--- NOTE | 2018-02-12 13:43 | ECG ---
Date Performed: 02/11/2018 Time Performed: 21:20:38 PTAGE: 72 years EKG: Sinus rhythm NORMAL ECG Since PREVIOUS TRACING , no significant change noted PREVIOUS TRACIN02/11/2018 13.36 DOCTOR: Christopher Blanco Interpretating Date/Time 02/12/2018 13:42:08
[2018-02-12] MEDS: Acetaminophen 325 MG Tablet PO SCH (17:39)
[2018-02-13] MEDS: Acetaminophen 325 MG Tablet PO SCH ×5 (01:06→23:27)
[2018-02-13] MEDS: Heparin - SQ 10,000 UNITS/ML Vial SQ SCH ×2 (05:08→17:40)
[2018-02-13] MEDS: Levothyroxine 150 MCG Tablet PO SCH ×3 (05:13→08:54)
[2018-02-13 06:01] LABS: Hematocrit 33.1 % (39.0-51.0); Hemoglobin 11.8 gm/dL (13.0-17.0); Mean Corpuscular HGB Conc 35.7 % (32.0-36.0); Mean Corpuscular Hemoglobin 32.3 pg (27.0-34.0); Mean Corpuscular Volume 90.6 fL (80.0-100.0); Mean Platelet Volume 8.3 fL (7.0-11.0); Platelet Count 167 th/mm3 (150-450); Red Blood Count 3.66 mil/mm3 (4.50-5.90); Red Cell Distribution Width 14.1 % (11.6-17.2); White Blood Count 10.3 th/mm3 (4.0-11.0)
[2018-02-13 06:25] LABS: Albumin 2.9 g/dL (3.4-5.0); Calcium 8.2 mg/dL (8.5-10.1); Carbon Dioxide 25.2 meq/L (21.0-32.0); Magnesium 2.1 mg/dL (1.5-2.5); Potassium 4.1 meq/L (3.5-5.1)
[2018-02-13 06:35] LABS: Thyroid Stimulating Hormone 2.15 uIU/mL (0.358-3.740); Total Protein 6.1 g/dL (6.4-8.2)
[2018-02-13] MEDS: Senna/Docusate Sodium 8.6/50 MG Tablet PO SCH ×3 (08:39→20:05)
[2018-02-13] MEDS: Naproxen 500 MG Tablet PO SCH ×2 (08:39→20:05)
[2018-02-13] MEDS: Lidocaine 5% Patch T-DERMAL SCH (08:40)
[2018-02-13] MEDS: LEVOCETIRIZINE 5 MG PO SCH (08:41)
[2018-02-13] MEDS: Lisinopril 5 MG Tablet PO SCH (08:51)
[2018-02-13] MEDS ORDERED: Levofloxacin 250 mg Premix Inj 250 MG/50 ML PIGGYBACK IV.SIG SCH (13:48)
--- NOTE | 2018-02-13 13:48 | P.PNIM ---
Subjective Interval history: Patient seen and evaluated this morning at bedside. Patient reports mild improvement in symptoms since starting naproxen. Patient reports some chills but denies subjective fever. Patient does report urinary discomfort with urinating. Still awaiting urinary cultures to return in order to optimize outpatient therapy. Physical Exam Vital signs: Last Vital Signs Temp 97.9 F 02/13/18 12:00 Pulse 68 02/13/18 12:00 Resp 18 02/13/18 12:00 BP 160/87 H 02/13/18 12:00 Pulse Ox 93 L 02/13/18 12:00 Intake & Output 02/11/18 02/12/18 02/13/18 02/14/18 06:59 06:59 06:59 06:59 Intake Total 840 / 840 1480 / 1480 Output Total 2825 / 2825 Balance 840 / 840 -1345 / -1345 Weight 119.3 kg 119.7 kg Neuro: No acute distress, conversational HEENT: EOMI Cardiovascular: S1/S2. No murmur noted. Tender to palpation over anterior chest wall on left side. Respiratory: Clear to auscultation anteriorly and posteriorly without wheezing, rales, or rhonchi Gastrointestinal: Soft, nontender, nondistended, no guarding or rebound appreciated. Positive bowel sounds Extremity: No lower extremity edema or calf tenderness. Results Labs CBC & Chem 7: 02/13/18 04:51 02/13/18 04:51 Labs: Microbiology 02/11/18 15:10 Blood - Peripheral Aerobic Blood Culture - Preliminary No growth in 2 days 02/11/18 15:10 Blood - Peripheral Anaerobic Blood Culture - Preliminary No growth in 2 days 02/11/18 15:05 Blood - Peripheral Aerobic Blood Culture - Preliminary No growth in 2 days 02/11/18 15:05 Blood - Peripheral Anaerobic Blood Culture - Preliminary No growth in 2 days 02/11/18 13:45 Clean Catch Urine Urine Culture - Final Enterobacter cloacae Assessment and Plan (1) Urinary tract infection: Code(s): N39.0 - Urinary tract infection, site not specified Status: Acute (2) Atypical chest pain: Code(s): R07.89 - Other chest pain Status: Acute (3) Dysuria: Code(s): R30.0 - Dysuria Status: Acute (4) SIRS (systemic inflammatory response syndrome): Code(s): R65.10 - Systemic inflammatory response syndrome (SIRS) of non-infectious origin without acute organ dysfunction Status: Acute Plan Patient is a 72-year-old male with past medical history of atypical chest pain presenting with complaints of chest pain over the left sternal wall as well as burning with urination concerning for urinary tract infection. Cardiovascular: Chest pain, hypertension, hyperlipidemia Patient has received multiple workups in the past to this point which have been negative. Troponin levels during hospitalization negative. EKG without acute ST changes. On physical examination patient's chest wall pain was reproducible with palpation of her chest wall which is concerning for possible costochondritis. This was explained to patient and will begin trial of NSAID therapy and monitor results. Test dose of naproxen 500 mg twice daily administered patient. -Use of opioids should be avoided in patients with chest pain of musculoskeletal etiology. For patients with continued symptoms interfering with performance of activities of daily living and who have not experienced an adequate response to other therapies, including treatment with topical agents, physical measures, nonsteroidal antiinflammatory drugs (NSAIDs), and local injection (where appropriate), a trial of tramadol at a dose of up to 200 mg daily in divided doses may be used, although the lowest dose necessary should be employed. EKG as needed chest pain Continue telemetry monitoring Continue lisinopril 5 mg daily, atorvastatin 40 mg p.o. Infectious disease: Urinary tract infection Urine culture pending Enterobacter on urine culture. Transition to Levaquin Endocrinology: Hypothyroidism Continue Synthroid 150 mcg TSH level normal. No concern for hyperthyroidism at this time CODE STATUS: Full code DVT prophylaxis: Heparin subcu Diet: Regular Disposition: Medical surgery unit. Progress Note: Quality VTE Deep Vein Thrombosis/Pulmonary Embolism Present on Admission: No _ (1) Urinary tract infection Qualifiers: Urinary tract infection type: Hematuria presence: Indwelling urinary catheter type: Encounter type:
[2018-02-14] MEDS: Acetaminophen 325 MG Tablet PO SCH ×4 (06:24→23:09)
[2018-02-14] MEDS: Heparin - SQ 10,000 UNITS/ML Vial SQ SCH ×2 (06:25→17:47)
[2018-02-14] MEDS: Levothyroxine 150 MCG Tablet PO SCH ×2 (06:33→08:51)
[2018-02-14] MEDS: Lisinopril 5 MG Tablet PO SCH (08:49)
[2018-02-14] MEDS: Levofloxacin 250 mg Premix Inj 250 MG/50 ML PIGGYBACK IV.SIG SCH (08:49)
[2018-02-14] MEDS: Lidocaine 5% Patch T-DERMAL SCH (08:50)
[2018-02-14] MEDS: Naproxen 500 MG Tablet PO SCH ×2 (08:50→20:55)
[2018-02-14] MEDS: LEVOCETIRIZINE 5 MG PO SCH (08:51)
[2018-02-14] MEDS: Senna/Docusate Sodium 8.6/50 MG Tablet PO SCH ×2 (08:51→20:26)
--- NOTE | 2018-02-14 14:50 | P.PNIM ---
Subjective Interval history: Patient seen and evaluated this morning at the bedside. Patient denies subjective fever but states that he still has burning with urination. Patient denied noticing any urinary discharge, new ulcers or lesions , or new sexual partners when questioned. Patient reports that chest wall tenderness is better over the last 24 hours Physical Exam Vital signs: Last Vital Signs Temp 97.8 F 02/14/18 12:00 Pulse 75 02/14/18 12:00 Resp 14 02/14/18 12:00 BP 152/70 H 02/14/18 12:00 Pulse Ox 95 02/14/18 12:00 Intake & Output 02/12/18 02/13/18 02/14/18 02/15/18 06:59 06:59 06:59 06:59 Intake Total 840 / 840 1480 / 1480 1300 / 1300 50 / 50 Output Total 2825 / 2825 1275 / 1275 Balance 840 / 840 -1345 / -1345 50 / 50 Weight 119.3 kg 119.7 kg 119.8 kg Neuro: No acute distress, conversational HEENT: EOMI Muscular skeletal: Reduced musculoskeletal tenderness over the anterior chest wall on left and right side. No rash noted Cardiovascular: S1/S2 Respiratory: Clear to auscultation Gastrointestinal: Soft, nontender urology: No tender testicles, no erythema, no ulcers or other lesions noted. No pus at the meatal opening. Negative Fren sign Neurology: No focal deficits Results Labs CBC & Chem 7: 02/13/18 04:51 02/13/18 04:51 Labs: Microbiology 02/11/18 15:10 Blood - Peripheral Aerobic Blood Culture - Preliminary No growth in 3 days 02/11/18 15:10 Blood - Peripheral Anaerobic Blood Culture - Preliminary No growth in 3 days 02/11/18 15:05 Blood - Peripheral Aerobic Blood Culture - Preliminary No growth in 3 days 02/11/18 15:05 Blood - Peripheral Anaerobic Blood Culture - Preliminary No growth in 3 days Assessment and Plan (1) Urinary tract infection: Code(s): N39.0 - Urinary tract infection, site not specified Status: Acute (2) Atypical chest pain: Code(s): R07.89 - Other chest pain Status: Acute (3) Dysuria: Code(s): R30.0 - Dysuria Status: Acute (4) SIRS (systemic inflammatory response syndrome): Code(s): R65.10 - Systemic inflammatory response syndrome (SIRS) of non-infectious origin without acute organ dysfunction Status: Acute Plan Patient is a 72-year-old male with past medical history of atypical chest pain presenting with complaints of chest pain over the left sternal wall as well as burning with urination concerning for urinary tract infection. Cardiovascular: Chest pain, hypertension, hyperlipidemia Patient has received multiple workups in the past to this point which have been negative. Troponin levels during hospitalization negative. EKG without acute ST changes. On physical examination patient's chest wall pain was reproducible with palpation of her chest wall which is concerning for possible costochondritis. This was explained to patient and will begin trial of NSAID therapy and monitor results. naproxen 500 mg twice daily -Use of opioids should be avoided in patients with chest pain of musculoskeletal etiology. For patients with continued symptoms interfering with performance of activities of daily living and who have not experienced an adequate response to other therapies, including treatment with topical agents, physical measures, nonsteroidal antiinflammatory drugs (NSAIDs), and local injection (where appropriate), a trial of tramadol at a dose of up to 200 mg daily in divided doses may be used, although the lowest dose necessary should be employed. EKG as needed chest pain Continue telemetry monitoring Continue lisinopril 5 mg daily, atorvastatin 40 mg p.o. Infectious disease: Urinary tract infection Urine culture pending Enterobacter on urine culture. Transition to Levaquin Endocrinology: Hypothyroidism Continue Synthroid 150 mcg TSH level normal. No concern for hyperthyroidism at this time CODE STATUS: Full code DVT prophylaxis: Heparin subcu Diet: Regular Disposition: Medical surgery unit. Progress Note: Quality VTE Deep Vein Thrombosis/Pulmonary Embolism Present on Admission: No _ (1) Urinary tract infection Qualifiers: Urinary tract infection type: Hematuria presence: Indwelling urinary catheter type: Encounter type:
[2018-02-15] MEDS: Acetaminophen 325 MG Tablet PO SCH (05:23)
[2018-02-15] MEDS: Heparin - SQ 10,000 UNITS/ML Vial SQ SCH (05:23)
[2018-02-15] MEDS: Levothyroxine 150 MCG Tablet PO SCH ×2 (05:23→08:47)
[2018-02-15] MEDS: Naproxen 500 MG Tablet PO SCH (08:46)
[2018-02-15] MEDS: Lidocaine 5% Patch T-DERMAL SCH (08:46)
[2018-02-15] MEDS: Lisinopril 5 MG Tablet PO SCH (08:46)
[2018-02-15] MEDS: Levofloxacin 250 mg Premix Inj 250 MG/50 ML PIGGYBACK IV.SIG SCH (08:47)
[2018-02-15] MEDS: Senna/Docusate Sodium 8.6/50 MG Tablet PO SCH (08:47)
[2018-02-15] MEDS: LEVOCETIRIZINE 5 MG PO SCH (08:49)
--- NOTE | 2018-02-15 11:43 | P.DS ---
DS: Providers Date of admission: 02/11/18 16:42 Primary care physician: UNKNOWN Patient is a 72-year-old male with past medical history of hypothyroidism, and hypertension who presented to the emergency department for complaints of chest pain. Patient reports that symptoms have been on and off over the last year and has had workup outpatient including catheterization which did not show any vessel disease. Patient was recently seen in the emergency department 1 month ago and underwent a nuclear stress test which at the time was also negative. Patient reports that symptoms are left-sided in nature with pain that comes and goes occasionally. Patient also endorsed symptoms of burning with urination but denied any foul-smelling urine or back pain or nausea or vomiting. Patient was admitted with the following treatments and services were provided in his care. EKG obtained did not show any evidence of arrhythmia on EKG and troponin levels unremarkable. On physical examination patient with significant chest wall tenderness for which she was given a trial of naproxen 500 mg twice daily with symptomatic improvement in symptoms. For urinary complaints patient was empirically treated with ceftriaxone with urine culture coming back positive for enterobacteria. Patient was subsequently transitioned over to Levaquin for oral therapy outpatient. During hospitalization patient remained afebrile without a white blood cell count and is clinically stable for discharge with plan outpatient follow-up with PMD. Explained to patient that naproxen can affect kidney function and that he should have outpatient kidney function testing performed in about 3-5 days. Consults: 02/14/18 13:26 HUB Only Consult Order Routine Consulting Provider: [facility],Insurance Brief History from admission: 72-year-old male with past medical history significant for hypertension, hyperlipidemia, chest pain, COPD, hypothyroidism and gallstones who presents to the emergency department via [facility] due to chest pain. Review of medical records from [place] reveals patient was most recently seen in December due to complaints of chest pain and admitted to chest pain center. During that admission patient underwent CTA which was negative for PE, noted arthrosclerotic plaquing of the coronary arteries, 4.6 cm simple cyst in dome of liver. During December admission troponins were negative and patient underwent myocardial perfusion scan which revealed no reversible perfusion defect to indicate stress-induced myocardial ischemia. Patient was ultimately discharged home with instructions to follow-up with PCP nitroglycerin as needed. Today he presents with chest pain complaints which began yesterday while he was grocery shopping reports that pain was located on the left side of his chest radiating to the left arm causing numbness. He reports pain lasted about 3-4 hours and ultimately subsided on its own without intervention. He denies any dizziness, lightheadedness, or palpitations during this episode. This morning around 10 AM he again began experiencing chest pain on left side radiating down to the left arm while he was sitting watching TV. He rates his pain 9.5 out of 10 describes it as a stabbing sensation with no alleviating factors. He reports he took 2 nitroglycerin sublingual without relief and called [facility]. In route he believes he received additional nitroglycerin with no relief. When arrived to the emergency department he received oral [place] and states this relieved his pain. He denies any recent trauma to left chest area. Patient reports that he has been having ongoing chest pain for the past year. He was seen at [facility] about a year ago and states that he had a scan done which showed 86% blockage in 1 of his arteries. Subsequently he underwent heart catheterization which she was told was negative. He also shares with me that he was seen at [facility] about a month ago due to urinary complaints and was discharged with a prescription for Dilaudid. He complains of fever of 102 today with chills, dysuria, questionable hematuria , nausea without vomiting and no lower back pain. He denies any urinary incontinence or frequency. He denies any headache, dizziness, cough, shortness of breath, visual changes, or weakness on any extremity. DS: Diagnosis Discharge Diagnosis (1) Urinary tract infection: Status: Acute (2) Atypical chest pain: Status: Acute (3) Dysuria: Status: Acute (4) SIRS (systemic inflammatory response syndrome): Status: Acute DS: Summary Patient is a 72-year-old male with past medical history of hypothyroidism, and hypertension who presented to the emergency department for complaints of chest pain. Patient reports that symptoms have been on and off over the last year and has had workup outpatient including catheterization which did not show any vessel disease. Patient was recently seen in the emergency department 1 month ago and underwent a nuclear stress test which at the time was also negative. Patient reports that symptoms are left-sided in nature with pain that comes and goes occasionally. Patient also endorsed symptoms of burning with urination but denied any foul-smelling urine or back pain or nausea or vomiting. Patient was admitted with the following treatments and services were provided in his care. EKG obtained did not show any evidence of arrhythmia on EKG and troponin levels unremarkable. On physical examination patient with significant chest wall tenderness for which she was given a trial of naproxen 500 mg twice daily with symptomatic improvement in symptoms. For urinary complaints patient was empirically treated with ceftriaxone with urine culture coming back positive for enterobacteria. Patient was subsequently transitioned over to Levaquin for oral therapy outpatient. During hospitalization patient remained afebrile without a white blood cell count and is clinically stable for discharge with plan outpatient follow-up with PMD. Explained to patient that naproxen can affect kidney function and that he should have outpatient kidney function testing performed in about 3-5 days. Time Spent with Patient Total time spent providing and/or coordinating discharge services: 30 minutes Quality: VTE Deep Vein Thrombosis/Pulmonary Embolism Present on Admission: No Exam Narrative Exam Narrative: General: No acute distress, conversational Musculoskeletal: Reduced anterior chest wall pain and tenderness Cardiovascular: S1/S2. No murmur rub or gallop Respiratory: Clear to auscultation Urology: No suprapubic tenderness, no CVA tenderness Results Labs on day of discharge: Preliminary micro results at discharge 02/11/18 15:10 Aerobic Blood Culture - Preliminary Blood - Peripheral No growth in 4 days Anaerobic Blood Culture - Preliminary No growth in 4 days 02/11/18 15:05 Aerobic Blood Culture - Preliminary Blood - Peripheral No growth in 4 days Anaerobic Blood Culture - Preliminary No growth in 4 days Impressions ITS Impressions Chest X-Ray 02/11/18 13:38 CONCLUSION: The lungs are clear. Discharge Plan Discharge Disposition Patient Disposition: 01 Discharge Home Discharge Condition Condition: Stable Discharge Order Discharge Orders: Discharge Order (Routine); Ordered 02/15/18 Ordered By: Abad Manuel Discharge Details Anticipated Discharge Date: 02/15/18 Physicians Team Primary Care Provider: UNKNOWN, Attending Provider: Abad Manuel Other Providers: [employer],Insurance Rxs /Orders / Referrals /Forms Prescriptions: New naproxen [Naprosyn] 500 mg Tablet 500 mg PO BID 7 Days Qty: 14 RF: 0 levofloxacin [Levaquin] 500 mg tablet 500 mg PO DAILY 5 Days Qty: 5 RF: 0 Continue zolpidem [Ambien] 10 mg Tablet 10 mg PO HS RF: 0 atorvastatin 40 mg Tablet 40 mg PO HS RF: 0 levothyroxine 137 mcg Tablet 150 mcg PO DAILY RF: 0 aspirin 81 mg Tablet,Delayed Release (Dr/Ec) 81 mg PO DAILY RF: 0 nitroglycerin [Nitrostat] 0.4 mg Tablet, Sublingual 0.4 mg SUBLINGUAL Q5-15M PRN (Reason: Chest Pain) RF: 0 albuterol sulfate [Ventolin HFA] 90 mcg/actuation Hfa Aerosol Inhaler 1 - 2 puff INHALATION Q6H PRN (Reason: Shortness Of Breath) RF: 0 levocetirizine [Xyzal] 5 mg Tablet 5 mg PO DAILY RF: 0 mv,Ca,[id number]-AL-lycopene [Centrum Men] 8 mg iron- 200 mcg-600 mcg Tablet 1 tab PO DAILY RF: 0 Referrals: Do Kyle Asher MD [Family Provider] - See Instructions UNKNOWN, [Primary Care Provider] - See Instructions Discharge Instructions Patient Printed Instructions: Chest Pain (DC), Costochondritis (GEN) Additional Instructions: please follow up with your primary medical doctor for monitoring while on naproxen for costrochondritis. Please have kidney function test monitored. Also complete antibiotic therapy with levaquin orally outpatient Post Discharge Care Plan Care Plan Goals: Your Health Problems: Goals to Promote Your Health: * To prevent worsening of your condition * To maintain your health at the optimal level Directions to Meet Your Goals: * Take your medications as prescribed * Follow your dietary instruction * Follow activity as directed * Keep your appointments as scheduled * Take your immunizations and boosters as scheduled * If your symptoms worsen call your PCP * If no PCP go to Urgent Care or Emergency Room Smoking is dangerous to your health. Avoid second hand smoke. You may reach the 24-hour crisis hotline for domestic abuse at . Discharge Interventions Interventions: Discharge Planning - Case Management Last Done: 02/14/18 09:21 Status ED Status: Left Department
== END 2018-02-15 12:39 | disposition home or self-care (01) ==
LOC: NEPC 13:23 → NEDA 16:42 → INTOOBSV 16:42 → NEDA 17:37 → N04 17:37
PROVIDERS: ADMIT Internal Medicine; ATTEND Internal Medicine
CPT/HCPCS: 71010; 71045; 80048; 80053; 80076; 81001; 82550; 82552; 83605; 83690; 83735; 84443; 84484; 85025; 85027; 87040; 87077; 87086; 87186; 90761; 90775; 90776; 93005; 96361; 96365; 96366; 96367; 96372; 96375; 96376; 99285; G0378; J0696; J1644; J1956; J2405; J7040